=== PATIENT | male | born 1965 | race Caucasian/White ===

== ENCOUNTER 2018-12-03 15:24 | Emergency (ER) | payer BC, OTHER ==
--- OUTSIDE RECORDS SUMMARY | 2018-12-03 15:28 | XMS REPORT | Summary of Care ---
:1965 Demographics Address [address] [place] [address]- Email Address Preferred Language Turkmen Marital Status Bahai Affiliation None Race Other Ethnic Group Not or Author Organization [facility] Address [address], [place] [address]- Encounter HQ Encntr_alias(FIN) [id number] Date(s): 07/12/16 - 07/12/16 [facility] [address] [place] [address]- [phone] Discharge Disposition: Home or Self Care Attending Physician: Kailyn Davila PA-C Vital Signs No data available for this section Problem List Condition Effective Dates Status Health Status Informant Bone fracture(Confirmed) Resolved High cholesterol(Confirmed) Resolved Hypertension(Confirmed) Resolved HTN (hypertension)(Confirmed) Active Prostate cancer(Confirmed) Active PC (prostate cancer)(Confirmed) Active BPH (benign prostatic Resolved hyperplasia)(Confirmed) Elevated PSA(Confirmed) Resolved 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 Frequency: Daily. Smoking Status Former smoker; Type: Cigarettes; Exposure to Tobacco Smoke None ; Other Tobacco Frequency quit 3 years ago; Cigarette Smoking Last 365 Days No; Reg Smoking Cessation Counseling No Assessment and Plan No data available for this section
--- OUTSIDE RECORDS SUMMARY | 2018-12-03 15:28 | XMS REPORT | Continuity of Care Document ---
:1965 Author Organization Interface Problems Problem Status Onset Classification Date Comments Source Date Reported PROSTATE CANCER Active 06/01/[address] Bone fracture Resolved Problem 10/17/2016 [facility] OPISusana Sandoval High cholesterol Resolved Problem 10/17/2016 [facility] OPID Jaime Hypertension Resolved Problem 10/17/2016 [facility] OPID Jaime HTN (<span Active Problem 10/17/2016 [id number] [facility]spa [place] n>) [facility] Prostate cancer Active Problem 10/17/2016 [facility] OPID Jaime PC (<span Active Problem 10/17/2016 [facility][id number] [facility]spa [place] n>) [facility] BPH (<span Resolved Problem 10/17/2016 [facility] ID[facility][id number] [facility]spa [place] n[facility] Elevated PSA Resolved Problem 10/17/2016 [facility] OPID Jaime Type 2 diabetes Active Problem 10/17/2016 OPID mellitus with Jaime, diabetic chronic [place] kidney disease [facility] Urinary Active Problem 10/17/2016 OPID incontinence, Jaime mixed MALIGNANT Active [facility] NEOPLASM OF [facility] PROSTATE Center Medications Medication Details Route Status Patient Ordering Order Source Instructions Provider Date Lipitor 10 mg, 1 tab, No Longer [facility] Route: PO, Drug Active 2016 Medical form: TAB, Center Daily, Dosing Weight 92.813, kg, Start date: 07/07/16 9:00:00 JDE DEVELOPER, Duration: 30 day, Stop date: 08/05/16 9:00:00 CSTNotes: (Same As: Lipitor) Amlodipine 10 mg, 1 tab, No Longer [facility] Route: PO, Drug Active 2016 Medical form: TAB, Center Daily, Dosing Weight 92.813, kg, Start date: 07/07/16 9:00:00 JDE DEVELOPER, Duration: 30 day, Stop date: 08/05/16 9:00:00 CSTNotes: (Same as: Norvasc) ceFAZolin 1 gm, Route: Inactive [place] (SCIP) IVPB, Drug form: 2017 Medical PDR/INJ, Q8H, Center Dosing Weight 93.182, kg, Start date: 07/06/16 21:00:00 JDE DEVELOPER, Duration: 1 doses or times, Stop date: 07/06/16 21:00:00 CSTNotes: (Same As: Ancef, Kefzol) MEDICATION WASTE Product Size: 1000 mg Product Wasted: _0__ mg Metformin 500 mg, 1 tab, Inactive [place] hydrochloride Route: PO, Drug 2016 Medical 500 MG Oral form: TAB, Center Tablet BID-Meals, Dosing Weight 92.813, kg, Start date: 07/06/16 17:00:00 JDE DEVELOPER, Duration: 30 day, Stop date: 08/05/16 8:00:00 CSTNotes: (Same as: Glucophage) Take with meal Docusate Sodium 100 mg, 1 cap, Inactive [place] 100 MG Oral Route: PO, Drug 2016 Medical Capsule form: CAP, BID, Center [Colace] Dosing Weight 92.813, kg, Start date: 07/06/16 17:00:00 JDE DEVELOPER, Duration: 30 day, Stop date: 08/05/16 9:00:00 JDE DEVELOPER Lisinopril 20 mg, 1 tab, Inactive [place] Route: PO, Drug 2016 Medical form: TAB, Center Daily, Dosing Weight 92.813, kg, Start date: 07/06/16 13:30:00 JDE DEVELOPER, Duration: 30 day, Stop date: 08/05/16 9:00:00 CSTNotes: (Same as: Prinivil, Zestril) Doxepin 10 mg, 1 cap, Inactive [place] Route: PO, Drug 2016 Medical form: CAP, TID, Center Dosing Weight 92.813, kg, Start date: 07/06/16 13:00:00 JDE DEVELOPER, Duration: 30 day, Stop date: 08/05/16 9:00:00 CSTNotes: (Same as: SINEquan) Famotidine 20 mg, 1 tab, No Longer [place] Route: PO, Drug Active 2016 Medical form: TAB, Q12H, Center Dosing Weight 93.182, kg, Start date: 07/05/16 21:00:00 JDE DEVELOPER, Duration: 30 day, Stop date: 08/04/16 9:00:00 CSTNotes: (Same as: Pepcid) Ketorolac 15 mg, 1 mL, No Longer [place] Route: IVP, Drug Active 2016 Medical form: INJ, Q6H, Center Dosing Weight 93.182, kg, Start date: 07/05/16 18:00:00 JDE DEVELOPER, Duration: 6 doses or times, Stop date: 07/07/16 0:00:00 CSTNotes: (Same as:Toradol) IV bolus must be given >15 seconds. Give IM administration slowly and deeply into the muscle. Not for use > 4 days. Docusate Sodium 100 mg, 1 cap, No Longer [place] 100 MG Oral Route: PO, Drug Active 2016 Medical Capsule form: CAP, BID, Center Dosing Weight 93.182, kg, Start date: 07/05/16 17:00:00 JDE DEVELOPER, Duration: 30 day, Stop date: 08/04/16 9:00:00 CSTNotes: (Same as: Colace) (Do Not Crush) Bacitracin 0.5 1 appl, Route: No Longer [place] UNT/MG / TOP, QID, Drug Active 2016 Medical Polymyxin B 10 form: OINT, PRN [facility] UNT/MG Topical Other -See Ointment Comment, Start date: 07/05/16 16:02:00 JDE DEVELOPER, Duration: 30 day, Stop date: 08/04/16 16:01:00 JDE DEVELOPER, Substitute Allowed: Always, urethral meatus at huggins - lubircationNotes : (Same As: Polysporin) ceFAZolin 1 gm, Route: Inactive [place] (SCIP) IVPB, Drug form: 2016 Medical PDR/INJ, Q8H, Center Dosing Weight 93.182, kg, Start date: 07/05/16 16:00:00 JDE DEVELOPER, Duration: 1 doses or times, Stop date: 07/05/16 16:00:00 CSTNotes: (Same As: Ancef, Kefzol) MEDICATION WASTE Product Size: 1000 mg Product Wasted: _0__ mg zolpidem 5 mg, 1 tab, No Longer [place] Route: PO, Drug Active 2016 Medical form: TAB, Center Bedtime, Dosing Weight 93.182, kg, PRN Insomnia, Start date: 07/05/16 15:59:00 JDE DEVELOPER, Duration: 30 day, Stop date: 08/04/16 15:58:00 CSTNotes: (Same As: Alyssa) Ondansetron 4 mg, 2 mL, No Longer [place] Route: IVP, Drug Active 2016 Medical form: INJ, Q6H, Center Dosing Weight 93.182, kg, PRN Nausea & Vomiting, Start date: 07/05/16 15:59:00 JDE DEVELOPER, Duration: 30 day, Stop date: 08/04/16 15:58:00 CSTNotes: (Same as: Zofran) MEDICATION WASTE Product Size: 4 mg Product Wasted: ___ mg Dulcolax 5 mg, 1 tab, No Longer [place] Laxative Route: PO, Drug Active 2016 Medical form: ECTAB, Center Q24H, Dosing Weight 93.182, kg, PRN Constipation, Start date: 07/05/16 15:59:00 JDE DEVELOPER, Duration: 30 day, Stop date: 08/04/16 15:58:00 CSTNotes: (Same As: Dulcolax, Correctol) (Do Not Crush) "Do Not Crush" Morphine 2 mg, 1 mL, No Longer [place] Route: IVP, Drug Active 2016 Medical form: INJ, Q3H, Center Dosing Weight 93.182, kg, PRN Pain Score 1-3, Start date: 07/05/16 15:59:00 JDE DEVELOPER, Duration: 30 day, Stop date: 08/04/16 15:58:00 CSTNotes: (Same as:MORPhine Sulfate) Acetaminophen 1 tab, Route: No Longer [place] 325 MG / PO, Drug Form: Active 2017 Medical Hydrocodone TAB, Dosing Center Bitartrate 5 MG Weight 93.182, Oral Tablet kg, Q4H, PRN Pain Score 4-6, Start date: 07/05/16 15:59:00 JDE DEVELOPER, Duration: 30 day, Stop date: 08/04/16 15:58:00 CSTNotes: (Same as: Lamar 325/5) Do not exceed 4gm/day of acetaminophen. Calcium 1,000 mL, Rate: No Longer [place] Chloride 0.0014 125 ml/hr, Active 2016 Medical MEQ/ML / Infuse over: 8 Center Potassium hr, Route: IV, Chloride 0.004 Dosing Weight MEQ/ML / Sodium 93.182 kg, Total Chloride 0.103 Volume: 1,000, MEQ/ML / Sodium Start date: Lactate 0.028 07/05/16 MEQ/ML 15:59:00 JDE DEVELOPER, Injectable Duration: 30 Solution day, Stop date: 08/04/16 15:58:00 JDE DEVELOPER Ondansetron 4 mg, 2 mL, Inactive [place] Route: IVP, Drug 2016 Medical form: INJ, ONCE, Center Dosing Weight 93.182, kg, PRN Nausea & Vomiting, Start date: 07/05/16 12:07:00 CSTNotes: (Same as: Zofran) MEDICATION WASTE Product Size: 4 mg Product Wasted: ___ mg Hydralazine 10 mg, 0.5 mL, Inactive [place] Route: IVP, Drug 2016 Medical form: INJ, Center Q20Min, Dosing Weight 93.182, kg, PRN Elevated BP, Start date: 07/05/16 12:07:00 JDE DEVELOPER, Duration: 2 doses or times, Stop date: 07/06/16 0:00:00 CSTNotes: (Same as: Apresoline) Push over 5 minutes Labetalol 10 mg, 2 mL, Inactive [place] Route: IVP, Drug 2016 Medical form: INJ, Center Q5Min, Dosing Weight 93.182, kg, PRN Elevated BP, Start date: 07/05/16 12:07:00 JDE DEVELOPER, Duration: 5 doses or times, Stop date: 07/06/16 0:00:00 JDE DEVELOPER Hydromorphone 0.5 mg, 0.25 mL, Inactive [place] Route: IVP, Drug 2016 Medical form: INJ, Center Q5Min, Dosing Weight 93.182, kg, PRN Pain Score 7-10, Start date: 07/05/16 12:07:00 JDE DEVELOPER, Duration: 4 doses or times, Stop date: 07/06/16 0:00:00 CSTNotes: Same as Dilaudid Morphine 2 mg, 0.5 mL, Inactive [place] Route: IVP, Drug 2016 Medical form: SOLN, Center Q5Min, Dosing Weight 93.182, kg, PRN Pain Score 4-6, Start date: 07/05/16 12:07:00 JDE DEVELOPER, Duration: 5 doses or times, Stop date: 07/06/16 0:00:00 CSTNotes: (Same as:MORPhine Sulfate) Naloxone 0.4 mg, 1 mL, Inactive [place] Route: IVP, Drug 2016 Medical form: INJ, Center Q2MIN, Dosing Weight 93.182, kg, PRN Narcotic Reversal, Start date: 07/05/16 12:07:00 JDE DEVELOPER, Duration: 8 doses or times, Stop date: 07/06/16 0:00:00 CSTNotes: Same as Narcan Flumazenil 0.2 mg, 2 mL, Inactive [place] Route: IVP, Drug 2016 Medical form: INJ, PRN, Center Dosing Weight 93.182, kg, PRN Benzodiazepine Reversal, Initial dose, Start date: 07/05/16 12:07:00 JDE DEVELOPER, Duration: 30 day, Stop date: 08/04/16 12:06:00 CSTNotes: (Same as: Romazicon) ceFAZolin 2 gm, 100 mL, No Longer [place] Route: IVPB, Active 2016 Medical Drug form: INJ, Center PRE OP, Start date: 07/04/16 23:00:00 JDE DEVELOPER, Duration: 1 day, Stop date: 07/05/16 22:59:00 CSTNotes: Same as: Ancef lisinopril 20 20 mg=1 tab, PO, Active [place] mg oral tablet Daily, 0 2015 Medical Refill(s) Center amLODIPine 10 10 mg=1 tab, PO, Active [place] mg oral tablet Daily, 0 2015 Medical Refill(s) Center Metformin 500 mg=1 tab, Active [place] hydrochloride PO, BID, 0 2015 Medical 500 MG Oral Refill(s) Center Tablet doxepin 10 mg 10 mg=1 cap, PO, Active [place] oral capsule TID, 0 Refill(s) 2015 [facility] atorvastatin 10 10 mg=1 tab, PO, Active [place] MG Oral Tablet Daily, 0 2015 [facility] [Lipitor] Refill(s) [facility] Allergies, Adverse Reactions, Alerts Substance Category Reaction Severity Reaction Status Date Comments Source type Reported Immunizations Immunization Date Given Site Status Last Updated Comments Source Results Order Name Results Value Reference Date Interpretation Comments Source Range Bone / Bone / joint EXAM: NM Bone Joint Imaging Whole Body and SPECT OPID joint SPECT SPECT ND This report was dictated by a Computer Network Engineer/Fellow. I have personally reviewed the images as well as the Resident's interpretation and agree with the findings. DATE: 10/14/2016 3:51 PM CDT Read by: Lisa Landaverde MD Resident: Lisa Landaverde MD Dictated Date/time: 10/14/16 16:26 Electronically Signed by: Bryanna Murray MD 10/15/16 10:51 FINAL REPORT INDICATION: Prostate cancer, restaging. COMPARISON: None TECHNIQUE: Approximately 2 hours delayed whole body images were obtained after intravenous administration of 26.24 mCi of Tc-99m MDP. Additional static images of the thorax and pelvis were obtained. SPECT imaging of the pelvis was also obtained to evaluate the sacrum. FINDINGS: Small focal of uptake projecting over the left mid sacrum was evaluated using SPECT and is localized to the superficial soft tissues of the buttocks, consistent with urinary contamination. Mild uptake a t the right glenohumeral joint is consistent with degenerative change. No suspicious focal uptake is seen in the rest of the body to suggest metastases. The rest of tracer distribution throughout the body is physiologic. IMPRESSION: No evidence of bony metastases. Bone scan Bone scan NM EXAM: NM Bone Joint Imaging Whole Body and SPECT OPID This report was dictated by a Computer Network Engineer/Fellow. I have personally reviewed the images as well as the Resident's interpretation and agree with the findings. DATE: 10/14/2016 3:51 PM CDT Read by: Lisa Landaverde MD Resident: Lisa Landaverde MD Dictated Date/time: 10/14/16 16:26 Electronically Signed by: Bryanna Murray MD 10/15/16 10:51 FINAL REPORT INDICATION: Prostate cancer, restaging. COMPARISON: None TECHNIQUE: Approximately 2 hours delayed whole body images were obtained after intravenous administration of 26.24 mCi of Tc-99m MDP. Additional static images of the thorax and pelvis were obtained. SPECT imaging of the pelvis was also obtained to evaluate the sacrum. FINDINGS: Small focal of uptake projecting over the left mid sacrum was evaluated using SPECT and is localized to the superficial soft tissues of the buttocks, consistent with urinary contamination. Mild uptake a t the right glenohumeral joint is consistent with degenerative change. No suspicious focal uptake is seen in the rest of the body to suggest metastases. The rest of tracer distribution throughout the body is physiologic. IMPRESSION: No evidence of bony metastases. Abdomen/Pel Abdomen/Pelvi EXAM: CT ABDOMEN AND PELVIS WITHOUT AND WITH CONTRAST 10/14 - OPID vis w/wo IV s w/wo IV /2016 - [place] contrast CT contrast CT DATE: 10/14/2016 11:46 AM CDT Read by: Moshe Stiles MD Dictated Date/time: 10/14/16 14:03 Electronically Signed by: Moshe Stiles MD 10/14/16 15:41 FINAL REPORT INDICATION: C61 Malignant neoplasm of prostate - Evaluate for possible metastasis ADDITIONAL INFORMATION: None. COMPARISON: None. TECHNIQUE: Volumetric CT acquisition of the abdomen and pelvis before and after the intravenous administration contrast. Axial, coronal and sagittal reconstructions. Postcontrast phases: Venous. IV contrast: 100 mL of Omnipaque 350 Oral contrast: None. DLP: 1426 mGy-cm FINDINGS: Lines and tubes: None. Lower thorax: Clear. Liver: Normal. Biliary tree: No intra- or extrahepatic biliary ductal dilation. Gallbladder: Normal. No CT evidence of gallstones. Pancreas: Normal. Spleen: Normal. Adrenals: Normal. Kidneys and ureters: Normal. Bladder: Normal. Reproductive organs: No CT abnormality. Gastrointestinal tract: Colonic diverticulosis without any CT evidence of acute otitis. Appendix: Normal. Peritoneum and retroperitoneum: No ascites or free air. No other fluid collection. Lymph nodes: A 9 mm lymph node in the left internal iliac chain on series 3 , image 68. Vasculature: Atherosclerotic calcifications. Bones: Normal. Soft tissues: Normal. IMPRESSION: 1. A 9 mm left internal iliac chain lymph node. RECOMMENDATIONS: None. Cystogram Cystogram DX EXAM: FLUOROSCOPIC CYSTOGRAM 07/19 OPID Jaime DATE: 07/19/2016 10:00 AM JDE DEVELOPER Read by: Dank Chavez MD Dictated Date/time: 07/19/16 11:10 Electronically Signed by: Dank Chavez 07/19/16 11:19 FINAL REPORT INDICATION: Tube placement/removal/reposition ADDITIONAL INFORMATION: Prostate CA status post prostatectomy COMPARISON: 07/12/2016 TECHNIQUE: Approximately 120 cc of Cysto-Conray II was infused through the patient's existing Huggins catheter. Early, delayed filling, and post void radiographs were obtained in AP and oblique projections. FLUOROSCOPY TIME: 0.23 seconds DISCUSSION: Preliminary radiograph: Normal. Urinary bladder: Bladder contours are slightly irregular. Faint minimal area of extravasation is noted at the vesicourethral anastomosis as noted on prior exam, however significantly decreased. This is best seen on the oblique images No significant post void residual. IMPRESSION: 1. Very minimal faint extravasation noted at the vesicourethral anastomosis significantly decreased from prior exam. Above findings discussed with SHANE Mendoza from Dr. Corley's office at the time of dictation. Cystogram Cystogram DX EXAM: FLUOROSCOPIC CYSTOGRAM 07/12 OPID Jaime DATE: 07/12/2016 11:02 AM JDE DEVELOPER Read by: Ban Jones MD Dictated Date/time: 07/12/16 11:28 Electronically Signed by: Ban Jones MD 07/12/16 11:30 FINAL REPORT INDICATION: Tube placement/removal/reposition/C61 Malignant neoplasm of prostate ADDITIONAL INFORMATION: None. COMPARISON: None. TECHNIQUE: Approximately 120 cc of Cysto-Conray II was infused through the patient's existing Huggins catheter. Early, delayed filling, and post void radiographs were obtained in AP and oblique projections. FLUOROSCOPY TIME: 49 seconds DOSE: 49.04 mGy DISCUSSION: Preliminary radiograph: A Huggins catheter is present within the urinary bladder. Urinary bladder: Bladder contours are smooth. A small amount of extravasated contrast is seen from the vesicourethral anastomosis during late filling, right greater than left. No significant post void residual. IMPRESSION: 1. Contrast extravasation at the vesicourethral anastomosis. CHEM PANEL eGFR 62 07/05 Result Comment: The eGFR is calculated using the CKD-EPI formula. In most young, healthy individuals the eGFR will be >90 mL/ min/1.73m2. The eGFR declines with age. An eGFR of 60-89 may be normal in [facility] mL/min/1.7 some populations, particularly the elderly, for whom the CKD-EPI formula has not been extensively validated. Use of the eGFR is not recommended in the following populations: [address] Individuals with unstable creatinine concentrations, including patients and those with serious co-morbid conditions. Patients with extremes in muscle mass or diet. The data above are obtained from the National Kidney Disease Education Program (NKDEP) which additionally recommends that when the eGFR is used in patients with extremes of body mass index for purposes of drug dosing, the eGFR should be multiplied by the estimated BMI. CHEM PANEL Alk Phos 75 unit/L 39 - 136 07/[address] CHEM PANEL AST 14 unit/L 0 - 37 07/[address] CHEM PANEL Bili Total 0.6 mg/dL 0.2 - 1.3 07/[address] CHEM PANEL ALT 22 unit/L 0 - 65 07/[address] CHEM PANEL Chloride Lvl 102 meq/L 95 - 109 07/[address] CHEM PANEL CO2 25 meq/L 24 - 32 07/[address] CHEM PANEL Creatinine 1.31 mg/dL 0.50 - 07/05 [facility] Lvl [address].40 [facility] CHEM PANEL Calcium Lvl 8.8 mg/dL 8.5 - 10.5 07/[address] CHEM PANEL Potassium Lvl 4.6 meq/L 3.5 - 5.1 07/[address] CHEM PANEL Sodium Lvl 136 meq/L 135 - 145 07/[address] CHEM PANEL Albumin Lvl 3.8 g/dL 3.5 - 5.0 07/[address] CHEM PANEL Total Protein 7.1 g/dL 6.4 - 8.4 07/[address] CHEM PANEL BUN 14 mg/dL 7 - 22 07/[address] CHEM PANEL Glucose Lvl 161 mg/dL 70 - 99 07/05 [facility] CHEM PANEL A/G Ratio 1.2 0.7 - 1.6 07/05 [facility] CHEM PANEL B/C Ratio 11 6 - 25 07/05 [facility] CHEM PANEL AGAP 13.6 meq/L 10.0 - 07/[address] [facility] CHEM PANEL Globulin 3.3 g/dL 2.7 - 4.2 07/05 [facility] HEMATOLOGY RBC 4.21 M/CMM 4.70 - 07/[address] [facility] HEMATOLOGY Hgb 13.5 g/dL 14.0 - 07/[address] [facility] HEMATOLOGY WBC 13.3 K/CMM 3.7 - 10.4 07/05 [facility] HEMATOLOGY Hct 40.2 % 42.0 - 07/[address] [facility] HEMATOLOGY MCV 95.3 fL 80.0 - 07/[address] [facility] HEMATOLOGY MPV 7.7 fL 7.4 - 10.4 07/05 [facility] HEMATOLOGY RDW 12.6 % 11.5 - 07/[address] [facility] HEMATOLOGY Platelet 250 K/CMM 133 - 450 07/05 [facility] HEMATOLOGY MCH 31.9 pg 27.0 - 07/[address] [facility] HEMATOLOGY MCHC 33.5 g/dL 32.0 - 07/[address] [facility] HEMATOLOGY Lymphocytes 3.3 % 20.0 - 07/[address] [facility] HEMATOLOGY Segs 95.7 % 45.0 - 07/[address] [place] [address] [facility] HEMATOLOGY Lymphocytes # 0.4 K/CMM 1.0 - 5.5 07/05 [facility] HEMATOLOGY Segs-Bands # 12.7 K/CMM 1.5 - 8.1 07/05 [facility] HEMATOLOGY Basophils 0.1 % 0.0 - 1.0 07/[address] [place] [address] HEMATOLOGY Monocytes 0.9 % 2.0 - 12.0 07/05 [facility] HEMATOLOGY Monocytes # 0.1 K/CMM 0.0 - 0.8 07/05 [facility] PARATHYROID Ca Norm WB 1.10 1.05 - 07/05 [facility] PROFILE mMol/L 1. [facility] PARATHYROID Ca Ion WB 1.14 1. - 07/05 [facility] PROFILE mMol/L 1. [facility] BLOOD BANK Antibody Scrn Negative 07/05 [facility] (07/05/16 11:07 AM) [facility] BLOOD BANK ABO/Rh O POS 07/[address] [facility] CHEM PANEL eGFR 68 07/02 Result Comment: The eGFR is calculated using the CKD-EPI formula. In most young, healthy individuals the eGFR will be >90 mL/ min/1.73m2. The eGFR declines with age. An eGFR of 60-89 may be normal in [facility] mL/min/1. some populations, particularly the elderly, for whom the CKD-EPI formula has not been extensively validated. Use of the eGFR is not recommended in the following populations: [address] Individuals with unstable creatinine concentrations, including patients and those with serious co-morbid conditions. Patients with extremes in muscle mass or diet. The data above are obtained from the National Kidney Disease Education Program (NKDEP) which additionally recommends that when the eGFR is used in patients with extremes of body mass index for purposes of drug dosing, the eGFR should be multiplied by the estimated BMI. CHEM PANEL Potassium Lvl 4.6 meq/L 3.5 - 5.1 07/02 [facility] CHEM PANEL Sodium Lvl 141 meq/L 135 - 145 07/02 [facility] CHEM PANEL Creatinine 1.21 mg/dL 0.50 - 07/02 [facility] Lvl 1.40 [facility] CHEM PANEL BUN 18 mg/dL 7 - 22 07/02 [facility] CHEM PANEL Glucose Lvl 104 mg/dL 70 - 99 07/02 [facility] CHEM PANEL Calcium Lvl 10.1 mg/dL 8.5 - 10.5 07/02 [facility] CHEM PANEL CO2 28 meq/L 24 - 32 07/02 [facility] CHEM PANEL Chloride Lvl 103 meq/L 95 - 109 07/02 [facility] CHEM PANEL AGAP 14.6 meq/L 10.0 - 07/[address] [facility] [address] [facility] HEMATOLOGY TEG Data See Note 07/02 [facility] (07/02/16 4:30 PM) [facility] HEMATOLOGY Coag Index 2.6 -3.0-3.0 - 07/[address] [facility] HEMATOLOGY Max Amp 65.9 mm 50.0 - 07/[address] [facility] HEMATOLOGY G-value 9.7 K d/sc 4.5 - 11.0 07/[address] [facility] HEMATOLOGY Angle 70.3 53.0 - 07/02 [facility] degrees 72.0 [facility] HEMATOLOGY Ly30 0.0 % 0.0 - 7.5 07/[address] HEMATOLOGY K-time 1.3 min 1.0 - 3.0 07/[address] [facility] HEMATOLOGY R-time 3.9 min 5.0 - 10.0 07/[address] HEMATOLOGY Basophils # 0.1 K/CMM 0.0 - 0.2 07/[address] HEMATOLOGY Monocytes # 0.5 K/CMM 0.0 - 0.8 07/[address] HEMATOLOGY Lymphocytes # 1.5 K/CMM 1.0 - 5.5 07/[address] HEMATOLOGY Segs-Bands # 6.0 K/CMM 1.5 - 8.1 07/[address] HEMATOLOGY Basophils 0.7 % 0.0 - 1.0 07/[address] HEMATOLOGY Eosinophils 0.3 % 0.0 - 4.0 07/[address] [place] [address] HEMATOLOGY Lymphocytes 18.8 % 20.0 - 07/[address] [facility] HEMATOLOGY Monocytes 6.0 % 2.0 - 12.0 07/[address] [place] [address] HEMATOLOGY Segs 74.2 % 45.0 - 07/[address] [facility] HEMATOLOGY INR 1.00 0.85 - 07/[address] [facility] [address] [facility] HEMATOLOGY PTT 30.4 s 22.9 - 07/[address] [facility] [address] [facility] HEMATOLOGY PT 13.4 s 12.0 - 07/[address] [facility] HEMATOLOGY D-Dimer 0.27 ug/mL 07/[address] [facility] [address] [facility] HEMATOLOGY RBC 4.42 M/CMM 4.70 - 07/[address] [facility] HEMATOLOGY MCV 96.0 fL 80.0 - 07/[address] [facility] [address] [facility] HEMATOLOGY Hgb 14.6 g/dL 14.0 - 07/[address] [facility] [address] [facility] HEMATOLOGY Hct 42.4 % 42.0 - 07/[address] [facility] [address] [facility] HEMATOLOGY WBC 8.1 K/CMM 3.7 - 10.4 07/02 [facility] HEMATOLOGY MCH 33.0 pg 27.0 - 07/[address] [facility] [address] [facility] HEMATOLOGY MCHC 34.4 g/dL 32.0 - 07/[address] [facility] [address] [facility] HEMATOLOGY RDW 12.5 % 11.5 - 07/[address] [facility] [address] [facility] HEMATOLOGY Platelet 254 K/CMM 133 - 450 07/02 [facility] HEMATOLOGY MPV 7.7 fL 7.4 - 10.4 07/[address] [facility] SPECIAL Hgb A1C 6.0 % <=5.6 % 07/[address] [facility] [address] [facility] URINE AND UA 0.2 EU/dL 0.1 - 1.0 07/02 [facility] [address] [facility] URINE AND UA Sq Epi RARE 07/[address] [facility] URINE AND UA Blood Trace Negative 07/02 [facility] *ABN* [facility] (07/02/16 4:30 PM) URINE AND UA Mucus Few /LPF None Seen 07/02 [facility] STOOL /LPF /2016 [facility] URINE AND UA RBC 15 /HPF 0 - 2 07/[address] [facility] [address] [facility] URINE AND UA WBC 1 /HPF 0 - 5 07/[address] [facility] URINE AND UA Leuk Est Negative Negative 07/02 [facility] STOOL [facility] (07/02/16 4:30 PM) Center URINE AND UA Nitrite Negative Negative 07/02 [facility] (07/02/16 4:30 PM) [place] URINE AND UA Bili Negative Negative 07/02 [facility] *NA* [facility] (07/02/16 4:30 PM) URINE AND UA Glucose Negative Negative 07/02 [facility] [place] STOOL mg/dL mg/dL [facility] URINE AND UA pH 6.0 5.0 - 8.0 07/[address] [facility] [address] [facility] URINE AND UA Ketones Negative Negative 07/02 [facility] STOOL mg/dL mg/dL [facility] URINE AND UA Protein Negative Negative 07/02 [facility] STOOL mg/dL mg/dL [facility] URINE AND UA Spec Grav 1.018 <=1.030 07/[address] [facility] [address] [facility] URINE AND UA Turbidity Clear Clear 07/02 [facility] (07/02/16 4:30 PM) [facility] URINE AND UA Color Yellow Yellow 07/02 [facility] *NA* [facility] (07/02/16 4:30 PM) CHEM PANEL eGFR 97 06/25 Result Comment: The eGFR is calculated using the CKD-EPI formula. In most young, healthy individuals the eGFR will be >90 mL/ min/1.73m2. The eGFR declines with age. An eGFR of 60-89 may be normal in [facility] mL/min/1.7 some populations, particularly the elderly, for whom the CKD-EPI formula has not been extensively validated. Use of the eGFR is not recommended in the following populations: [address] Individuals with unstable creatinine concentrations, including patients and those with serious co-morbid conditions. Patients with extremes in muscle mass or diet. The data above are obtained from the National Kidney Disease Education Program (NKDEP) which additionally recommends that when the eGFR is used in patients with extremes of body mass index for purposes of drug dosing, the eGFR should be multiplied by the estimated BMI. CHEM PANEL POC 0.9 mg/dL 0.5 - 1.4 06/[address] [facility] [address] [facility] Pelvis w/wo Pelvis w/wo EXAM: MR PELVIS WITH AND WITHOUT CONTRAST 06/25 - [facility] contrast contrast MRI - Medical MRI This report was dictated by a Computer Network Engineer/Fellow. I have personally reviewed the images as Center well as the Resident's interpretation and agree with the findings. DATE: 06/25/2016 2:00 PM JDE DEVELOPER Read by: Ban Jones Resident: Ban Jones (Hardik Dictated Date/time: 06/28/16 11:51 Electronically Signed by: Curtis Go MD 06/28/16 16:53 FINAL REPORT INDICATION: Prostate Cancer ADDITIONAL INFORMATION: Prostate-specific antigen 20.3 on 03/2016. Prostate biopsy on 04/16/2016 demonstrates adenocarcinoma in all cores ranging from [place] 7 to [place] 9. On casodex. COMPARISON: None. TECHNIQUE: TECHNIQUE: Multiplanar, multisequence acquisition of the prostate both prior to and following intravenous contrast, per the dynamic prostate protocol. Axial, sagittal and coronal reconstructi ons. The study was transferred to work station for post processing. IV contrast: 9 mL Gadavist FINDINGS: Image quality: Excellent. Prostate: Size 3.1 x 3.5 x 4.6 cm, 25.9 mL. There is diffuse, infiltrative low T2 signal throughout the prostate gland involving the transition and peripheral zone bilaterally. There is relative sparing of the left peripheral zone at the apex. Co rresponding heterogeneous, moderate diffusion restriction and low ADC signal is seen throughout the prostate gland, with intermixed areas of significant low ADC signal. Heterogeneous arterial enhancemen t with delayed phase plateau is seen throughout the prostate. Seminal vesicles: Low T2 signal extends into the proximal seminal vesicles bilaterally with postcontrast enhancement, consistent with spread of tumor. Extracapsular extension: There is irregularity of the posterior prostate capsule at midline in the mid gland (series 601 image 17), concerning for extracapsular extension. No definite neurovascular bundle invasion. Bladder: The urinary bladder wall is trabeculated, consistent with chronic bladder outlet obstruction. Bladder invasion: No definite urinary bladder invasion. Lymph nodes: A 0.8 cm left internal iliac lymph node is seen on series 1503 image 114. A 0.8 cm left common iliac lymph node is seen on series 1503 image 137. These nodes demonstrate a rounded, irregula r contour and are highly suspicious for metastatic disease. A 0.5 cm right common iliac lymph node is present (series 3 image 153). A few scattered tiny perirectal lymph nodes are seen (2-3 mm) on series 1503 image 105, 94, and 120. Bones: No suspicious osseous lesions. A small fat-containing right inguinal hernia is present. Sigmoid diverticulosis is seen without diverticulitis. IMPRESSION: 1. Diffuse, infiltrative low signal throughout the prostate gland involving the peripheral and transition zones with relative sparing of the left peripheral zone apex, consistent with infiltrative pros plascencia cancer (PI-RADS 5). Heterogeneous diffusion restriction and post- contrast enhancement may reflect partial treatment response. 2. Bilateral seminal vesicle invasion. 3. Irregularity of the posterior prostate capsule at midline in the mid gland likely represents extracapsular extension. 4. Abnormal left internal iliac and left common iliac lymph nodes, highly suspicious for metastatic disease. Vital Signs Vital Sign Value Date Comments Source Systolic (mm Hg) 151 07/06/2016 [facility] Diastolic (mm Hg) 94 07/06/2016 [facility] Respitory Rate 18 07/06/2016 [facility] Heart Rate 92 07/06/2016 [facility] Temperature Oral (F) 98.7 F 07/06/2016 [facility] Respitory Rate 18 07/06/2016 [facility] Systolic (mm Hg) 128 07/06/2016 [facility] Diastolic (mm Hg) 85 07/06/2016 [facility] Temperature Oral (F) 98.1 F 07/06/2016 [facility] Heart Rate 83 07/06/2016 [facility] Heart Rate 99 07/06/2016 [facility] Temperature Oral (F) 99.3 F 07/06/2016 [facility] Systolic (mm Hg) 141 07/06/2016 [facility] Diastolic (mm Hg) 94 07/06/2016 [facility] Respitory Rate 18 07/06/2016 [facility] Weight 92.813 07/05/2016 [facility] Height 185.42 cm 07/05/2016 [facility] BMI Calculated 27 07/05/2016 [facility] BMI Calculated 27.1 07/05/2016 [facility] Height 185.42 cm 07/05/2016 [facility] Weight 93.182 07/05/2016 [facility] Weight 93.182 07/02/2016 [facility] BMI Calculated 27.1 07/02/2016 [facility] Height 185.42 cm 07/02/2016 [facility] Encounters Location Location Encounter Encounter Reason Attending ADM DC Status Source Details Type Number For Provider Date Date Visit Outpatient [id number] DOMI 06/01 [facility] [id number] Orville Rousseau 06/25 06/26 [facility]2016 [facility] Outpatient [id number] DOMI 07/01 [facility] [place] [facility] [id number] [place] ROUSSEAU 07/02 [facility] [id number] Domi 07/05 07/06 [facility] Outpatient [id number] [place]LE ROUSSEAU 07/12 [facility] [id number] Orville Rousseau 07/12 07/13 [facility] [place] [facility] [id number] [place] ROUSSEAU 07/19 [facility] [id number] Orville Rousseau 07/19 07/20 [facility] [place] [facility] [id number] DOMI 08/26 [facility] Outpt Diag [id number] Domi 10/14 10/15 [facility] [place] [facility] [place] [facility] [id number] DOMI 10/21 [facility] [id number] ORV[place]LE ROUSSEAU 04/29 [place] [facility] Procedure Code Date Perfomer [place] [address] [facility] cystography or voiding 7 [place] urethrocyst[facility] Prostatectomy [id number] [facility] 7 [facility] Prostatectomy [id number] [address]
--- OUTSIDE RECORDS SUMMARY | 2018-12-03 15:28 | XMS REPORT | Summary of Care ---
:1965 Demographics Address [address] [place] [address]- Email Address Preferred Language Spanish Marital Status Baptist Affiliation None Race White/ Ethnic Group Not or Author Organization [facility] Address [address] [place], [place] [address]- Encounter [facility]([place]) [id number] Date(s): 06/25/16 - 06/25/[address] [address]- [place] Discharge Disposition: Home or Self Care Attending Physician: Kailyn Davila PA-C Referring Physician: Kailyn Davila PA-C Vital Signs No data available for this section Problem List Condition Effective Dates Status Health Status Informant Bone fracture(Confirmed) Resolved High cholesterol(Confirmed) Resolved Hypertension(Confirmed) Resolved Prostate cancer(Confirmed) Active Elevated PSA(Confirmed) Resolved Allergies, Adverse Reactions, Alerts No data available for this section Medications No data available for this section Results CHEM PANEL Most recent to oldest [Reference Range]: 1 eGFR 97 mL/min/1.73m2 1 *NA* (06/25/16 3:05 PM) POC Creatinine [0.5-1.4 mg/dL] 0.9 mg/dL (06/25/16 3:05 PM) 1Result Comment: The eGFR is calculated using the CKD-EPI formula. In most young , healthy individualsthe eGFR will be >90 mL/min/1.73m2. The eGFR declines with age. An eGFR of 60-89 may be normal in some populations, particularly the elderly, for whom the CKD-EPI formula has not been extensively validated. Use of the eGFR is not recommended in the following populations: Individuals with unstable creatinine concentrations, including patients and those with serious co-morbid conditions. Patients with extremes in muscle mass or diet. The data above are obtained from the National Kidney Disease Education Program ( NKDEP) which additionally recommends that when the eGFR is used in patients with extremes of body mass index for purposesof drug dosing, the eGFR should be multiplied by the estimated BMI. Immunizations No data available for this section Procedures No data available for this section Social History Social History Type Response Smoking Status Never smoker; Exposure to Tobacco Smoke None; Cigarette Smoking Last 365 Days No; Reg Smoking Cessation Counseling No Assessment and Plan No data available for this section
--- OUTSIDE RECORDS SUMMARY | 2018-12-03 15:28 | XMS REPORT | Summary of Care ---
:1965 Demographics Address [address] [place] [address]- Email Address Preferred Language Burundian Marital Status Evangelical Affiliation None Race White/ Ethnic Group Not or Author [facility] Address [address] [place] [id number]- Encounter HQ Encntr_alilidia(FIN) [id number] Date(s): 07/05/16 - 07/06/[address] Professional Services provided by [facility] [place] [address]- Discharge Disposition: Home or Self Care Attending Physician: Rashid Lam MD Admitting Physician: Rashid Lam MD Referring Physician: Rashid Lam MD Vital Signs Most recent to oldest 1 2 3 [Reference Range]: Height 185.42 cm 185.42 cm 185.42 cm (07/05/16 5:25 PM) (07/05/16 10:53 AM) (07/02/16 2:57 PM) Temperature Oral [96.4-99.1 98.7 DegF 98.1 DegF 99.3 DegF DegF] (07/06/16 7:24 AM) (07/06/16 3:19 AM) *HI* (07/05/16 11:25 PM) Blood Pressure [90-140/60-90 151/94 mmHg 128/85 mmHg 141/94 mmHg mmHg] *HI* (07/06/16 3:19 AM) *HI* (07/06/16 7:24 AM) (07/05/16 11:25 PM) Respiratory Rate [14-20 18 BRMIN 18 BRMIN 18 BRMIN BRMIN] (07/06/16 7:24 AM) (07/06/16 3:19 AM) (07/05/16 11:25 PM) Peripheral Pulse Rate [60-100 92 bpm 83 bpm 99 bpm bpm] (07/06/16 7:24 AM) (07/06/16 3:19 AM) (07/05/16 11:25 PM) Weight 92.813 kg 93.182 kg 93.182 kg (07/05/16 5:25 PM) (07/05/16 10:53 AM) (07/02/16 2:57 PM) Body Mass Index 27 m2 27.1 m2 27.1 m2 (07/05/16 5:25 PM) (07/05/16 10:53 AM) (07/02/16 2:57 PM) Problem List Condition Effective Dates Status Health Status Informant Bone fracture(Confirmed) Resolved High cholesterol(Confirmed) Resolved Hypertension(Confirmed) Resolved HTN (hypertension)(Confirmed) Active Prostate cancer(Confirmed) Active PC (prostate cancer)(Confirmed) Active BPH (benign prostatic Resolved hyperplasia)(Confirmed) Elevated PSA(Confirmed) Resolved 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 Start Date: 07/05/16 Stop Date: 07/06/16 Status: DiscontinuedamLODIPine 10 mg, 1 tab, Route: PO, Drug form: TAB, Daily, Dosing Weight 92.813, kg, Start date: 07/07/16 9:00:00 GROUP RESERVATIONS COORDINATOR, Duration: 30 day, Stop date: 08/05/16 9:00:00 GROUP RESERVATIONS COORDINATOR Notes: (Same as: Norvasc) Start Date: 07/07/16 Stop Date: 07/06/16 Status: CanceledamLODIPine 10 mg oral tablet 10 mg=1 tab, PO, Daily, 0 Refill(s) Start Date: 06/03/16 Status: OrderedANES flumazenil 0.2 mg, 2 mL, Route: IVP, Drug form: INJ, PRN, Dosing Weight 93.182, kg, PRN Benzodiazepine Reversal, Initial dose, Start date: 07/05/16 12:07:00 GROUP RESERVATIONS COORDINATOR, Duration: 30 day, Stop date: 08/04/16 12:06:00 GROUP RESERVATIONS COORDINATOR Notes: (Same as: Romazicon) Start Date: 07/05/16 Stop Date: 07/05/16 Status: DiscontinuedANES hydrALAZINE 10 mg, 0.5 mL, Route: IVP, Drug form: INJ, Q20Min, Dosing Weight 93.182, kg, PRN Elevated BP, Start date: 07/05/16 12:07:00 GROUP RESERVATIONS COORDINATOR, Duration: 2 doses or times, Stop date: 07/06/16 0:00:00 GROUP RESERVATIONS COORDINATOR Notes: (Same as: Apresoline)Push over 5 minutes Start Date: 07/05/16 Stop Date: 07/05/16 Status: DiscontinuedANES HYDROmorphone 0.5 mg, 0.25 mL, Route: IVP, Drug form: INJ, Q5Min, Dosing Weight 93.182, kg, PRN Pain Score 7-10, Start date: 07/05/16 12:07:00 GROUP RESERVATIONS COORDINATOR, Duration: 4 doses or times, Stop date: 07/06/16 0:00:00 GROUP RESERVATIONS COORDINATOR Notes: Same as Dilaudid Start Date: 07/05/16 Stop Date: 07/05/16 Status: DiscontinuedANES labetalol 10 mg, 2 mL, Route: IVP, Drug form: INJ, Q5Min, Dosing Weight 93.182, kg, PRN Elevated BP, Start date: 07/05/16 12:07:00 GROUP RESERVATIONS COORDINATOR, Duration: 5 doses or times, Stop date: 07/06/16 0:00:00 GROUP RESERVATIONS COORDINATOR Start Date: 07/05/16 Stop Date: 07/05/16 Status: DiscontinuedANES morphine Sulfate 2 mg, 0.5 mL, Route: IVP, Drug form: SOLN, Q5Min, Dosing Weight 93.182, kg, PRN Pain Score 4-6, Start date: 07/05/16 12:07:00 GROUP RESERVATIONS COORDINATOR, Duration: 5 doses or times, Stop date: 07/06/16 0:00:00 GROUP RESERVATIONS COORDINATOR Notes: (Same as:MORPhine Sulfate) Start Date: 07/05/16 Stop Date: 07/05/16 Status: DiscontinuedANES naloxone 0.4 mg, 1 mL, Route: IVP, Drug form: INJ, Q2MIN, Dosing Weight 93.182, kg, PRN Narcotic Reversal, Start date: 07/05/16 12:07:00 GROUP RESERVATIONS COORDINATOR, Duration: 8 doses or times , Stop date: 07/06/16 0:00:00 GROUP RESERVATIONS COORDINATOR Notes: Same as Narcan Start Date: 07/05/16 Stop Date: 07/05/16 Status: DiscontinuedANES ondansetron 4 mg, 2 mL, Route: IVP, Drug form: INJ, ONCE, Dosing Weight 93.182, kg, PRN Nausea & Vomiting, Start date: 07/05/16 12:07:00 GROUP RESERVATIONS COORDINATOR Notes: (Same as: Brandon) MEDICATION WASTE Product Size: 4 mgProduct Wasted: ___ mg Start Date: 07/05/16 Stop Date: 07/05/16 Status: Discontinuedbacitracin-polymyxin B topical ointment 1 appl, Route: TOP, QID, Drug form: OINT, PRN Other -See Comment, Start date: 16:02:00 GROUP RESERVATIONS COORDINATOR,Duration: 30 day, Stop date: 08/04/16 16:01:00 GROUP RESERVATIONS COORDINATOR, Substitute Allowed: Always, urethral meatus at huggins - lubircation Notes: (Same As: Polysporin) Start Date: 07/05/16 Stop Date: 07/06/16 Status: DiscontinuedceFAZolin 2 gm, 100 mL, Route: IVPB, Drug form: INJ, PRE OP, Start date: 07/04/16 23:00: 00 GROUP RESERVATIONS COORDINATOR, Duration: 1 day, Stop date: 07/05/16 22:59:00 GROUP RESERVATIONS COORDINATOR Notes: Same as: Ancef Start Date: 07/04/16 Stop Date: 07/05/16 Status: CompletedceFAZolin (SCIP) 1 gm, Route: IVPB, Drug form: PDR/INJ, Q8H, Dosing Weight 93.182, kg, Start date : 07/06/16 21:00:00 GROUP RESERVATIONS COORDINATOR, Duration: 1 doses or times, Stop date: 07/06/16 21:00: 00 GROUP RESERVATIONS COORDINATOR Notes: (Same As: Ancef, Raquel) MEDICATION WASTE Product Size: 1000 mgProduct Wasted: _0__mg Start Date: 07/06/16 Stop Date: 07/06/16 Status: CanceledceFAZolin (SCIP) 1 gm, Route: IVPB, Drug form: PDR/INJ, Q8H, Dosing Weight 93.182, kg, Start date : 07/05/16 16:00:00 GROUP RESERVATIONS COORDINATOR, Duration: 1 doses or times, Stop date: 07/05/16 16:00: 00 GROUP RESERVATIONS COORDINATOR Notes: (Same As: Raquel Blanc) MEDICATION WASTE Product Size: 1000 mgProduct Wasted: _0__mg Start Date: 07/05/16 Stop Date: 07/05/16 Status: DeletedColace 100 mg oral capsule 100 mg, 1 cap, Route: PO, Drug form: CAP, BID, Dosing Weight 92.813, kg, Start date: 07/06/16 17:00:00 GROUP RESERVATIONS COORDINATOR, Duration: 30 day, Stop date: 08/05/16 9:00:00 GROUP RESERVATIONS COORDINATOR Start Date: 07/06/16 Stop Date: 07/06/16 Status: Deleteddocusate sodium 100 mg oral capsule 100 mg, 1 cap, Route: PO, Drug form: CAP, BID, Dosing Weight 93.182, kg, Start date: 07/05/16 17:00:00 GROUP RESERVATIONS COORDINATOR, Duration: 30 day, Stop date: 08/04/16 9:00:00 GROUP RESERVATIONS COORDINATOR Notes: (Same as: Colace) (Do Not Crush) Start Date: 07/05/16 Stop Date: 07/06/16 Status: Discontinueddoxepin 10 mg, 1 cap, Route: PO, Drug form: CAP, TID, Dosing Weight 92.813, kg, Start date: 07/06/16 13:00:00 GROUP RESERVATIONS COORDINATOR, Duration: 30 day, Stop date: 08/05/16 9:00:00 GROUP RESERVATIONS COORDINATOR Notes: (Same as: SINEquan) Start Date: 07/06/16 Stop Date: 07/06/16 Status: Discontinueddoxepin 10 mg oral capsule 10 mg=1 cap, PO, TID, 0 Refill(s) Start Date: 06/03/16 Status: OrderedDulcolax Laxative 5 mg, 1 tab, Route: PO, Drug form: ECTAB, Q24H, Dosing Weight 93.182, kg, PRN Constipation, Start date: 07/05/16 15:59:00 GROUP RESERVATIONS COORDINATOR, Duration: 30 day, Stop date: 15:58:00 GROUP RESERVATIONS COORDINATOR Notes: (Same As: Dulcolax, Correctol) (Do Not Crush) "Do Not Crush" Start Date: 07/05/16 Stop Date: 07/06/16 Status: Discontinuedfamotidine 20 mg, 1 tab, Route: PO, Drug form: TAB, Q12H, Dosing Weight 93.182, kg, Start date: 07/05/16 21:00:00 GROUP RESERVATIONS COORDINATOR, Duration: 30 day, Stop date: 08/04/16 9:00:00 GROUP RESERVATIONS COORDINATOR Notes: (Same as: Pepcid) Start Date: 07/05/16 Stop Date: 07/06/16 Status: DiscontinuedketOROLAC 15 mg, 1 mL, Route: IVP, Drug form: INJ, Q6H, Dosing Weight 93.182, kg, Start date: 07/05/16 18:00:00 GROUP RESERVATIONS COORDINATOR, Duration: 6 doses or times, Stop date: 07/07/16 0: 00:00 GROUP RESERVATIONS COORDINATOR Notes: (Same as:Toradol) IV bolus must be given >15 seconds. Give IM administration slowly and deeply into the muscle. Not for use > 4 days. Start Date: 07/05/16 Stop Date: 07/06/16 Status: DiscontinuedLactated Ringers 1,000 mL 1,000 mL, Rate: 125 ml/hr, Infuse over: 8 hr, Route: IV, Dosing Weight 93.182 kg , Total Volume: 1,000, Start date: 07/05/16 15:59:00 GROUP RESERVATIONS COORDINATOR, Duration: 30 day, Stop date: 08/04/16 15:58:00 GROUP RESERVATIONS COORDINATOR Start Date: 07/05/16 Stop Date: 07/06/16 Status: DiscontinuedLipitor 10 mg, 1 tab, Route: PO, Drug form: TAB, Daily, Dosing Weight 92.813, kg, Start date: 07/07/16 9:00:00 GROUP RESERVATIONS COORDINATOR, Duration: 30 day, Stop date: 08/05/16 9:00:00 GROUP RESERVATIONS COORDINATOR Notes: (Same As: Lipitor) Start Date: 07/07/16 Stop Date: 07/06/16 Status: CanceledLipitor 10 mg oral tablet 10 mg=1 tab, PO, Daily, 0 Refill(s) Start Date: 06/03/16 Status: Orderedlisinopril 20 mg, 1 tab, Route: PO, Drug form: TAB, Daily, Dosing Weight 92.813, kg, Start date: 07/06/16 13:30:00 GROUP RESERVATIONS COORDINATOR, Duration: 30 day, Stop date: 08/05/16 9:00:00 GROUP RESERVATIONS COORDINATOR Notes: (Same as: Prinivil, Zestril) Start Date: 07/06/16 Stop Date: 07/06/16 Status: Discontinuedlisinopril 20 mg oral tablet 20 mg=1 tab, PO, Daily, 0 Refill(s) Start Date: 06/03/16 Status: OrderedmetFORMIN 500 mg oral tablet 500 mg, 1 tab, Route: PO, Drug form: TAB, BID-Meals, Dosing Weight 92.813, kg, Start date: 07/06/16 17:00:00 GROUP RESERVATIONS COORDINATOR, Duration: 30 day, Stop date: 08/05/16 8:00: 00 GROUP RESERVATIONS COORDINATOR Notes: (Same as: Glucophage) Take with meal Start Date: 07/06/16 Stop Date: 07/06/16 Status: CanceledmetFORMIN 500 mg oral tablet 500 mg=1 tab, PO, BID, 0 Refill(s) Start Date: 06/03/16 Status: Orderedmorphine Sulfate 2 mg, 1 mL, Route: IVP, Drug form: INJ, Q3H, Dosing Weight 93.182, kg, PRN Pain Score 1-3, Start date: 07/05/16 15:59:00 GROUP RESERVATIONS COORDINATOR, Duration: 30 day, Stop date: 08/04 15:58:00 GROUP RESERVATIONS COORDINATOR Notes: (Same as:MORPhine Sulfate) Start Date: 07/05/16 Stop Date: 07/06/16 Status: Discontinuedondansetron 4 mg, 2 mL, Route: IVP, Drug form: INJ, Q6H, Dosing Weight 93.182, kg, PRN Nausea & Vomiting, Start date: 07/05/16 15:59:00 GROUP RESERVATIONS COORDINATOR, Duration: 30 day, Stop date: 08/04/16 15:58:00 GROUP RESERVATIONS COORDINATOR Notes: (Same as: Zofran) MEDICATION WASTE Product Size: 4 mgProduct Wasted: ___ mg Start Date: 07/05/16 Stop Date: 07/06/16 Status: Discontinuedzolpidem 5 mg, 1 tab, Route: PO, Drug form: TAB, Bedtime, Dosing Weight 93.182, kg, PRN Insomnia, Start date:07/05/16 15:59:00 GROUP RESERVATIONS COORDINATOR, Duration: 30 day, Stop date: 15:58:00 GROUP RESERVATIONS COORDINATOR Notes: (Same As: Alyssa) Start Date: 07/05/16 Stop Date: 07/06/16 Status: Discontinued Results BLOOD BANK RESULTS Most recent to oldest [Reference Range]: 1 2 ABO/Rh O POS *Unknown* (07/05/16 11:07 AM) Antibody Scrn Negative (07/05/16 11:07 AM) ELECTROLYTES Most recent to oldest [Reference Range]: 1 2 Sodium Lvl [135-145 mEq/L] 136 mEq/L 141 mEq/L (07/05/16 4:29 PM) (07/02/16 4:30 PM) Potassium Lvl [3.5-5.1 mEq/L] 4.6 mEq/L 4.6 mEq/L (07/05/16 4:29 PM) (07/02/16 4:30 PM) Chloride Lvl [95-109 mEq/L] 102 mEq/L 103 mEq/L (07/05/16 4:29 PM) (07/02/16 4:30 PM) CO2 [24-32 mEq/L] 25 mEq/L 28 mEq/L (07/05/16 4:29 PM) (07/02/16 4:30 PM) AGAP [10.0-20.0 mEq/L] 13.6 mEq/L 14.6 mEq/L (07/05/16 4:29 PM) (07/02/16 4:30 PM) CHEM PANEL Most recent to oldest [Reference Range]: 1 2 Creatinine Lvl [0.50-1.40 mg/dL] 1.31 mg/dL 1.21 mg/dL (07/05/16 4:29 PM) (07/02/16 4:30 PM) eGFR 62 mL/min/1.73m2 1 68 mL/min/1.73m2 2 *NA* *NA* (07/05/16 4:29 PM) (07/02/16 4:30 PM) BUN [7-22 mg/dL] 14 mg/dL 18 mg/dL (07/05/16 4:29 PM) (07/02/16 4:30 PM) B/C Ratio [6-25] 11 (07/05/16 4:29 PM) Glucose Lvl [70-99 mg/dL] 161 mg/dL 104 mg/dL *HI* *HI* (07/05/16 4:29 PM) (07/02/16 4:30 PM) Total Protein [6.4-8.4 g/dL] 7.1 g/dL (07/05/16 4:29 PM) Albumin Lvl [3.5-5.0 g/dL] 3.8 g/dL (07/05/16 4:29 PM) Globulin [2.7-4.2 g/dL] 3.3 g/dL (07/05/16 4:29 PM) A/G Ratio [0.7-1.6] 1.2 (07/05/16 4:29 PM) Calcium Lvl [8.5-10.5 mg/dL] 8.8 mg/dL 10.1 mg/dL (07/05/16 4:29 PM) (07/02/16 4:30 PM) ALT [0-65 unit/L] 22 unit/L (07/05/16 4:29 PM) AST [0-37 unit/L] 14 unit/L (07/05/16 4:29 PM) Alk Phos [39-136 unit/L] 75 unit/L (07/05/16 4:29 PM) Bili Total [0.2-1.3 mg/dL] 0.6 mg/dL (07/05/16 4:29 PM) 1Result Comment: The eGFR is calculated [...] eGFR should be multiplied by the estimated BMI.2Result Comment: The eGFR is calculated using the CKD-EPI formula. In most young, healthy individualsthe eGFR will be >90 mL/ min/1.73m2. The [...] eGFR should be multiplied by the estimated BMI.SPECIAL CHEMISTRY Most recent to oldest [Reference Range]: 1 2 Hgb A1C [<=5.6 %] 6.0 % *HI* (07/02/16 4:30 PM) PARATHYROID PROFILE Most recent to oldest [Reference Range]: 1 2 Ca Ion WB [1.05-1.25 mMol/L] 1.14 mMol/L (07/05/16 4:29 PM) Ca Norm WB [1.05-1.25 mMol/L] 1.10 mMol/L (07/05/16 4:29 PM) URINE AND STOOL Most recent to oldest [Reference Range]: 1 2 UA Turbidity [Clear] Clear (07/02/16 4:30 PM) UA Color [Yellow] Yellow *NA* (07/02/16 4:30 PM) UA pH [5.0-8.0] 6.0 (07/02/16 4:30 PM) UA Spec Grav [<=1.030] 1.018 (07/02/16 4:30 PM) UA Glucose [Negative mg/dL] Negative mg/dL *NA* (07/02/16 4:30 PM) UA Blood [Negative] Trace *ABN* (07/02/16 4:30 PM) UA Ketones [Negative mg/dL] Negative mg/dL *NA* (07/02/16 4:30 PM) UA Protein [Negative mg/dL] Negative mg/dL (07/02/16 4:30 PM) UA Urobilinogen [0.1-1.0 EU/dL] 0.2 EU/dL (07/02/16 4:30 PM) UA Bili [Negative] Negative *NA* (07/02/16 4:30 PM) UA Leuk Est [Negative] Negative (07/02/16 4:30 PM) UA Nitrite [Negative] Negative (07/02/16 4:30 PM) UA WBC [0-5 /HPF] 1 /HPF (07/02/16 4:30 PM) UA RBC [0-2 /HPF] 15 /HPF *HI* (07/02/16 4:30 PM) UA Sq Epi RARE *NA* (07/02/16 4:30 PM) UA Mucus [None Seen /LPF] Few /LPF *NA* (07/02/16 4:30 PM) HEMATOLOGY Most recent to oldest [Reference Range]: 1 2 WBC [3.7-10.4 K/CMM] 13.3 K/CMM 8.1 K/CMM *HI* (07/02/16 4:30 PM) (07/05/16 4:29 PM) RBC [4.70-6.10 M/CMM] 4.21 M/CMM 4.42 M/CMM *LOW* *LOW* (07/05/16 4:29 PM) (07/02/16 4:30 PM) Hgb [14.0-18.0 g/dL] 13.5 g/dL 14.6 g/dL *LOW* (07/02/16 4:30 PM) (07/05/16 4:29 PM) Hct [42.0-54.0 %] 40.2 % 42.4 % *LOW* (07/02/16 4:30 PM) (07/05/16 4:29 PM) MCV [80.0-94.0 fL] 95.3 fL 96.0 fL *HI* *HI* (07/05/16 4:29 PM) (07/02/16 4:30 PM) MCH [27.0-31.0 pg] 31.9 pg 33.0 pg *HI* *HI* (07/05/16 4:29 PM) (07/02/16 4:30 PM) MCHC [32.0-36.0 g/dL] 33.5 g/dL 34.4 g/dL (07/05/16 4:29 PM) (07/02/16 4:30 PM) RDW [11.5-14.5 %] 12.6 % 12.5 % (07/05/16 4:29 PM) (07/02/16 4:30 PM) Platelet [133-450 K/CMM] 250 K/CMM 254 K/CMM (07/05/16 4:29 PM) (07/02/16 4:30 PM) MPV [7.4-10.4 fL] 7.7 fL 7.7 fL (07/05/16 4:29 PM) (07/02/16 4:30 PM) Segs [45.0-75.0 %] 95.7 % 74.2 % *HI* (07/02/16 4:30 PM) (07/05/16 4:29 PM) Lymphocytes [20.0-40.0 %] 3.3 % 18.8 % *LOW* *LOW* (07/05/16 4:29 PM) (07/02/16 4:30 PM) Monocytes [2.0-12.0 %] 0.9 % 6.0 % *LOW* (07/02/16 4:30 PM) (07/05/16 4:29 PM) Eosinophils [0.0-4.0 %] 0.3 % (07/02/16 4:30 PM) Basophils [0.0-1.0 %] 0.1 % 0.7 % (07/05/16 4:29 PM) (07/02/16 4:30 PM) Segs-Bands # [1.5-8.1 K/CMM] 12.7 K/CMM 6.0 K/CMM *HI* (07/02/16 4:30 PM) (07/05/16 4:29 PM) Lymphocytes # [1.0-5.5 K/CMM] 0.4 K/CMM 1.5 K/CMM *LOW* (07/02/16 4:30 PM) (07/05/16 4:29 PM) Monocytes # [0.0-0.8 K/CMM] 0.1 K/CMM 0.5 K/CMM (07/05/16 4:29 PM) (07/02/16 4:30 PM) Basophils # [0.0-0.2 K/CMM] 0.1 K/CMM (07/02/16 4:30 PM) PT [12.0-14.7 seconds] 13.4 seconds (07/02/16 4:30 PM) INR [0.85-1.17] 1.00 (07/02/16 4:30 PM) D-Dimer 0.27 ug/mL FEU *NA* (07/02/16 4:30 PM) PTT [22.9-35.8 seconds] 30.4 seconds (07/02/16 4:30 PM) R-time [5.0-10.0 minutes] 3.9 minutes *LOW* (07/02/16 4:30 PM) K-time [1.0-3.0 minutes] 1.3 minutes (07/02/16 4:30 PM) Angle [53.0-72.0 degrees] 70.3 degrees (07/02/16 4:30 PM) Max Amp [50.0-70.0 mm] 65.9 mm (07/02/16 4:30 PM) G-value [4.5-11.0 K d/sc] 9.7 K d/sc (07/02/16 4:30 PM) Ly30 [0.0-7.5 %] 0.0 % (07/02/16 4:30 PM) Coag Index [-3.0-3.0] 2.6 (07/02/16 4:30 PM) TEG Data See Note (07/02/16 4:30 PM) Immunizations No data available for this section Procedures Procedure Date Related Diagnosis Body Site Prostatectomy 07/05/16 Social History Social History Type Response Alcohol Current, Type Liquor. Frequency: Daily. Smoking Status Former smoker; Type: Cigarettes; Exposure to Tobacco Smoke None ; Other Tobacco Frequency quit 3 years ago; Cigarette Smoking Last 365 Days No; Reg Smoking Cessation Counseling No Assessment and Plan Extracted from: Title: Clinical Document Author: Kailyn Davila PA-C Date: 07/06/16 Patient: Stevenson Espinosa [place] 1965 MRN Date: 07/05/2016 OPERATIVE REPORT PRE-OPERATIVE DIAGNOSIS Carcinoma of the prostate, T1c POST-OPERATIVE DIAGNOSIS - Same PROCEDURE 1. Robotic-assisted laparoscopic radical prostatectomy, extra peritoneal approach 2. En bloc bladder neck resection with bladder neck reconstruction 3. >50% Nerve resection bilaterally 4. Robotic-assisted laparoscopic bilateral extended pelvic lymph node dissection 5. Robotic-assisted laparoscopic anterior and posterior reconstruction of the rhabdosphincter 1st EARLY INTERVENTIONIST Kieran Crystal - LSA/ Link Surgical ANESTHESIA General endotracheal INDICATIONS Mr. Espinosa is a 51 year old male recently diagnosed with prostate cancer. He presented for a second opinion on treatment options for recently diagnosed prostate cancer. He was diagnosed by Dr. Torrez [place]. His PSA was 20.3, this was his first PSA. Biopsy of 12 systematic cores + SV biopsy (negative) showed 12/12 positive cores [place] 7- 9. Max % cancer is 100% at LLA [place] 4+4. Dr. Arce recommended surgery and began the patient on Casodex. No known family h/ o prostate cancer. CT and Bone scan completed April 2016 were unremarkable for metastasis. We recommended mpMRI of the p rostate when we visited at our initial consult. MpMRI indicated bilateral seminal vesicle invasion, and suspicion of metastatic disease in the left iliac lymph nodes. I had a long talk with the patient about prostate cancer, the clinical features of this cancer including the significant volume of cancer at the base of the prostate and its implications, and the risks and benefits of watchful waiting, r adiation therapy, cryotherapy and surgery, both open and robotic. After reviewing all options with him in detail, he opted to undergo surgery which will be performed today. We discussed in detail that surgery today would likely not be curative. FINDINGS Due to the significant amount of cancer at the base of the prostate, a wide en bloc excision of the bladder neck all the way to the ureteral orifices was performed, removing the prostate, seminal vesicles, and bladder neck in one specimen with minimum dissection between them. The large defect in the bladder was then closed as described below. 1st EARLY INTERVENTIONIST ROLE IN THE PROCEDURE The 1st library serials assistant was positioned on the right hand side of the patient throughout the procedure and the surgeon was positioned on the left hand side during the initial phase of the operation, until the [employer] Janessa robot slave was docked and the instruments inserted through the robotic trocars, after which the surgeon moved to the master console in order to operate the robotic arms. The prim shlioh library serials assistant to the surgeon inserted a 20Fr Huggins catheter within the sterile surgical field. The 1st library serials assistant assisted the surgeon during the incision, creation of the surgical space, placement of t he trocars, both robotic and standard laparoscopic, and insertion of the camera and the surgical instruments. After the surgeon moved to the master console, the 1st library serials assistant remained at the pili ent s right side, performing the following tasks during the procedure: readjustment of the robotic arms, insertion, removal and exchange of the robotic instruments, insertion and removal of sutures, needles, and specimens, suction, retraction cutting of sutures, manipulating the Enseal Bishop device, etc. Near the end of the procedure, the 1st library serials assistant assisted the surgeon in undocking the da Janessa robot slave , and closure of all incisions and trocar sites. DESCRIPTION OF PROCEDURE IN DETAIL The patient was brought to the operating room and placed in the supine position. The patient was placed supine on a split leg table, with the arms tucked and padded at the sides as well. The table was then placed in mild Trendelenburg. The abdomen was shaved from the costal margin to the pubic bone; and the abdomen, penis, scrotum, and upper thighs as well as the perianal region were sterilely prep ped and draped. A 20-Faroese 2-way Huggins catheter was passed per urethra into the bladder and 15 cc placed in the balloon. 0.5% Marcaine with epinephrine was used for local anesthesia at all port sites . A 2-cm midline incision was made two fingersbreadth below the umbilicus and carried through Herbert's fascia. The anterior rectus fascia was divided in the midline as well, exposing the posterior rec tus fascia in the midline between the two rectus muscles. Blunt finger dissection was carried out between and below the rectus muscle belly on either side, developing the retropubic space of Retzius. A 2-0 Prolene suture was used to secure the upper edge of the fascial incision and tagged with a rubber-shod clamp. A kidney-shaped hernia dissecting balloon was passed under direct vision into this sp stephanie and the balloon inflated to further extend the space of Retzius. A 12-mm extraperitoneal balloon port was then placed into this space and the balloon inflated with 30 cc of air. The space of Retzi us was then insufflated to a pressure of 13 mmHg. Robotic and non-robotic trocar positions were marked out on the abdomen with a felt-tipped pen and infiltrated with local anesthetic. The 0-degree rig id laparoscope was used to inspect the space of Retzius and blunt dissection used to further deflect the peritoneum cephalad. The 8-mm left instrument-arm cannula was then inserted between the left ant erior superior iliac spine and the camera port in the midclavicular line. In a similar fashion, the right instrument-arm cannula was also placed between the umbilicus and the anterior iliac spine along the midclavicular line. Care was taken to avoid injury to the inferior epigastric vessels. The fourth robotic trocar was placed just medial to the left anterior-superior iliac spine, and 2 additional One-Step ports, one 12 mm and one 5 mm, were then inserted, one placed proximal and medial to the right instrument-arm cannula to facilitate delivery of sutures and removal of needles and one in the mi dline intermediate between the umbilicus and the pubis. These two ports were sutured into position. The surgical cart was then rolled into position, aligning the endoscopic arm and the endoscopic port in a straight line. The arms of the surgical cart were positioned in order to clear the height of the patient's legs. The endoscopic arm was then lowered and secured to the 12-mm cannula, and the 0-degree lens was inserted. The 3 robotic arms were then docked into position as well. On the left side, a Pro-Grasp forceps was passed through the far-left robotic port, and a Fenestrated bipolar was passed through the more medial second left robotic port. On the right side the "hot" pablo was passed through the right robotic trocar. Next, fat overlying the anterior prostate was swept cephalad and later ally, facilitating the definition of the prostatovesical junction. The superficial vein of Santorini was coagulated and divided. The endopelvic fascia was then incised on its line of reflection on bot h the right and left sides, allowing gentle blunt dissection of the levator ani muscles laterally. The puboprostatic ligaments were divided as well with the "hot" pablo close to the prostate on the ri ght and left sides. Next, the dorsal vein complex was ligated with #0 Vicryl [id number] sutures on a CT-1 needle at the level of the mid prostate. An additional #[address]-1 needles were placed at the bladder neck just proximal to the prostatovesical junction both to facilitate hemostasis and to serve as a "handle" for the anterior bladder wall. The lens was then changed to the 30 -degree "down" view. Next, the plane between the prostate and the bladder neck was identified laterally and the boundary further developed by dissection with the "hot" pablo, followed by the Weck clip s placed laterally on the pedicles to the bladder, before dividing them with the hot pablo, avoiding injury to the neurovascular bundles. This was continued until the anterior bladder was opened in a 180-degree fashion, and the Huggins catheter was visualized inside the bladder and its balloon deflated. The Huggins catheter was grasped with a bowel grasper passed through the 5 mm port and pulled anteri tremaine to help elevate the prostate and to provided counter traction. The dissection was continued through the posterior wall of the bladder, encompassing the entire bladder neck up to the level of the u retreal orifices, until the seminal vesicles and vas deferentia were identified. These were dissected free on both the right and left sides and the vas deferens divided bilaterally as well. The prosta te pedicles were then dissected and clipped using Weck clips on both the right and left sides, further dropping and releasing them posteriorly, avoiding the use of cautery to protect them. Dissection w as carried forth in an antegrade fashion, until the prostate was completely mobilized to the apex. Right prostate pedicle sample was sent for frozen specimen and the area was tagged with 10 mm metal per manent clips x3. Next, using the cold scissors, lateral pelvic fascia overlying the neurovascular bundles were released and the bundles further swept off of the prostate in a retrograde fashion. A 2-0 V-Loc suture on a CT-1 needle was used to suture ligate the distal-most DVC, just past the prostatic apex, on top of the urethra. The dorsal venous complex was then divided with the hot pablo and the urethra further exposed. The urethra was then divided along a 270 portion of the anterior aspect, leaving the posterior urethra intact. A 5-0 prolene suture on an RB-1 needs was then passed through the posterior urethra and secured with a Laparotie, to be used as a handle during the anastomosis. The remainder of the posterior urethra was than divided , and the posterior portion of the rhabodsphin cter was mobilized and divided from the prostatic apex as well. The remainder of the NVB dissection was then completed and Weck clips used to ligate the remaining portions of the prostate pedicles bila terally, before dividing them and freeing the specimen. The specimen was placed in an Endobag, the robotic camera port was undocked and the trocar deflated and removed. The specimen was delivered thro ugh this midline incision before resetting the camera port and re-docking the robot with the 30 degree lens replaced through the camera port. There was minimal bleeding noted and both neurovascular bun dles appeared intact. An extended bilateral pelvic lymph node dissection was then performed, removing all nodes in the iliac, hypogastric and obturator regions, which were then sent to pathology for p ermanent section. The bladder neck, was reconstructed using a running 3-0 Vicryl suture. Next, the posterior rhabdosphincter was identified and a 3-0 V- Loc suture on a V-20 tapered needle was secured to the proximal cut edge of Denonviller s fascia and the edge of the peritoneum of the Pouch of Star. These sutures were then passed 2 cm proximal to the reconstructed bladder neck and tied, bringi ng the bladder neck in close proximity to the urethra and re-creating the proper angle of the rhabdosphincter and extending the length of the rhabdosphincter, with the urethral stump buried within its m uscular tube. Evaseal was sprayed throughout the pelvic area, and along the NVBs for hemostasis and prevention of lymphocele. Next, the anastomosis was then completed using the Van Veltoven technique, first by passing a double-armed interlocked V-Loc suture of #3-0 Monocryl suture on RB-1 needles, each arm 7 inches long and tied to each other into the retropubic space. The posterior lip of the blad portillo was sutured in a running fashion to the posterior urethra, which was pulled into view using the prior placed 5-0 prolene handle and using perineal pressure, in a counter-clockwise fashion usin g the undyed arm of the suture. A large knot tied between the 2 arms of the suture allowed tightening of the posterior anastomosis without tying any further knots. A transition stitch from inside to o utside on the left lateral wall of the bladder at the 4 o'clock position was placed and then passed to the ProGrasp to hold the suture. The Huggins catheter was then passed into the bladder. The dyed po rtion of the suture was then used to sew the right lateral aspect of the anastomosis to the 12 o'clock position. The left side was then completed to the 12 o'clock position before tying these 2 arms to each other to complete the anastomosis. A final 3-0 Vicryl mattress suture was used to reapproximate the distal cut edge of the DVC fascia to the cut anterior edge of the bladder, and additional 3-0 Vicryl sutures were used to recreate the pubo-prostatic ligaments. The catheter was then filled with 120 cc of sterile water, and under direct vision the anastomosis was noted to be watertight. A Joseph son-Fox drain was passed through the right 10-mm port into the pelvis and secured with a nylon suture. The skin was closed with subcutaneous #4-0 plain catgut sutures and #4-0 Vicryl for skin. Steri le dressings were applied. The patient tolerated the procedure well and left the operating room in stable condition. Rashid Lam M.D. Extracted from: Title: Clinical Document Author: Kialyn Davila PA-C Date: 07/06/16 Discharge Summary Admission Date: 07/05/16 Discharge Date: 07/06/16 Diagnoses: Prostate Cancer Procedures: Robotic Assisted Laproscopic Prostatectomy and Bilateral Pelvic Lymph Node Dissection Chief Complaint: Prostate Cancer Hospital course: The patient was recently diagnosed Prostate Cancer on by Dr. Arce. He presented to [facility] for a second opinion on treatment options. Biopsy revealed all 12/12 cores positive, [place] 7-9. Patient was started on Casodex. A full review of the initial doiagnosis was conducted with the patient. We recommended mpMRI of the prostate which which was suspicious of metastas is to the left illiac lymph nodes. . The options for treatment including Robotic Assisted Laproscopic prostatectomy were discussed with the patient. We discussed that surgert alone would not likely be curative. We recommended surgery with extensive bilateral lymph node dissection. After full discussion of the procedure, possible outcomes, and post- operative care and managment, the patient opted for s urgery. Surgery was completed 07/05/16 unremarkable and the patient tolerated the procedure well. POD#1 he is doing well and will be discharged home with the huggins and the MADIE drain in place. Discharge condition: Stable Recent signficant physical findings: GEN: A7O x4, normal speech and affect ABD: non distented. mild TTP. MADIE present and set to drainage with serosanginous Fluid. incisions (5) c/d/i, healing well EXT: no edema, SCD present : Huggins catheter draining well, yellow urine. Recent significant lab & radiology results: [facility] BUN: 14 mg/dL (07/05/16) Hct: 40.2 % Low (07/05/16) Hgb: 13.5 g/dL Low (07/05/16) MCH: 31.9 pg High (07/05/16) MCHC: 33.5 g/dL (07/05/16) MCV: 95.3 fL High (07/05/16) MPV: 7.7 fL (07/05/16) Platelet: 250 K/CMM (07/05/16) RBC: 4.21 M/CMM Low (07/05/16) RDW: 12.6 % (07/05/16) WBC: 13.3 K/CMM High (07/05/16) Discharge therapy: Medications: See discharge reconciliation Diet : Regular adult diet Activity: No driving for 2 weeks, no heavy lifting, monitor urine Follow up : 1 week for cystogram Wound Care: Please review how to monitor MADIE Drain output. Patient can return to clinic when output is 100cc or less in a 24 hour period. Extracted from: Title: Clinical Document Author: Kailyn Davila PA-C Date: 07/05/16 Attending: Rashid Lam MD Service: Urology Code status: None Specified=FULL CODE Reason for Admission: PROSTATE CANCER Working DRG: None Documented Isolation: None Documented Consulting Physicians: (none on file) HPI: He is a 51 year old patient here today for a second opinion on treatment options for recently diagnosed prostate cancer. He was diagnosed by Dr. Torrez in [place] on 04/16/16. His PSA was 20.3, this was his first PSA. Biopsy of 12 systematic cores + SV biopsy (negative) showed 12/ 12 positive cores archana 7-9. Max % cancer is 100% at LLA [place] 4+4. Patient would like to have surgery as soon as possi ble. Dr. Arce recommended surgery and began the patient on Casodex- he has been on it for 1 week at this time. PMH included DM, HTN, hypercholesterolemia. No known family h/o prostate cancer. CT and Martin ne scan completed April 2016 were unremarkable for mets. 07/01/16: Patient is here to review recent mpMRI as noted below. Patient continues on Casodex at this time. 07/02/16: He is here for pre- op evaluation for planned RALP BPLND. ROS Constitutional: no fever, no weight loss, no weight gain, no fatigue, no malaise Cardiovascular: no chest pain, no SOB, no palpitations Respiratory: no cough, Gastrointestinal: no NVD, no diarrhea, no constipation, no abdominal pain Genitourinary: no dysuria, no frequency, no urgency, no nocturia, no incontinence Musculoskeletal: no arthralgia, no myalgia, no stiffness Neurological: no weakness, no headache, no seizure, no dizziness, no tingling, no numbness Psychiatric: no anxiety, no depression, no insomnia Allergic/Immunologic: no rash, no allergies, no fever, no chills PE: General: well developed, well nourished, in no acute distress. Eyes: PERRL/EOM intact, conjunctiva and sclera clear without nystagmus. Lungs: clear bilaterally to auscultation without wheezing or rhonchi, good aeration. Heart: non-displaced PMI, chest non-tender; regular rate and rhythm, S1, S2 without murmurs, rubs, or gallops Abdomen: normal bowel sounds; no hepatosplenomegaly no ventral, umbilical hernias or masses noted. : No suprapubic tenderness,No L-CVAT, R-CVAT Extremities: No swelling, edema, or cyanosis [facility] AGAP: 14.6 mEq/L (07/02/16) Angle: 70.3 degrees (07/02/16) Basophils: 0.7 % (07/02/16) Basophils #: 0.1 K/CMM (07/02/16) BUN: 18 mg/dL (07/02/16) Calcium Lvl: 10.1 mg/dL (07/02/16) Chloride Lvl: 103 mEq/L (07/02/16) CO2: 28 mEq/L (07/02/16) Coag Index: 2.6 (07/02/16) Creatinine Lvl: 1.21 mg/dL (07/02/16) Culture: Urine: NEG (07/04/16) D-Dimer: 0.27 ug/mL FEU (07/02/16) eGFR: 68 mL/min/1.73m2 (07/02/16) Eosinophils: 0.3 % (07/02/16) G-value: 9.7 K d/sc (07/02/16) Glucose Lvl: 104 mg/dL High (07/02/16) Glucose POC: 142 mg/dL High (07/05/16) Hct: 42.4 % (07/02/16) Hgb: 14.6 g/dL (07/02/16) Hgb A1C: 6.0 % High (07/02/16) INR: 1.00 (07/02/16) K-time: 1.3 minutes (07/02/16) Ly30: 0.0 % (07/02/16) Lymphocytes: 18.8 % Low (07/02/16) Lymphocytes #: 1.5 K/CMM (07/02/16) Max Amp: 65.9 mm (07/02/16) MCH: 33.0 pg High (07/02/16) MCHC: 34.4 g/dL (07/02/16) MCV: 96.0 fL High (07/02/16) Monocytes: 6.0 % (07/02/16) Monocytes #: 0.5 K/CMM (07/02/16) MPV: 7.7 fL (07/02/16) Platelet: 254 K/CMM (07/02/16) POC Creatinine: 0.9 mg/dL (06/26/16) POC UA Bili: Negative (07/01/16) POC UA Bld: Small Abnormal (07/01/16) POC UA Color: Yellow (07/01/16) POC UA Glu: Negative (07/01/16) POC UA Ket: Negative (07/01/16) POC UA LeukEst: Negative (07/01/16) POC UA Nit: Negative (07/01/16) POC UA pH: 6.5 (07/01/16) POC UA Prot: Negative (07/01/16) POC UA S.010 (07/01/16) POC UA Turbidity: Clear (07/01/16) POC UA Uro: 0.2 EU/dL (07/01/16) Potassium Lvl: 4.6 mEq/L (07/02/16) PT: 13.4 seconds (07/02/16) PTT: 30.4 seconds (07/02/16) R-time: 3.9 minutes Low (07/02/16) RBC: 4.42 M/CMM Low (07/02/16) RDW: 12.5 % (07/02/16) Segs: 74.2 % (07/02/16) Segs-Bands #: 6.0 K/CMM (07/02/16) Sodium Lvl: 141 mEq/L (07/02/16) TEG Data: See Note (07/02/16) TSH: 0.774 uIU/mL (07/02/16) UA Bili: NEG (07/02/16) UA Blood: cTrace Abnormal (07/02/16) UA Color: Yellow (07/02/16) UA Glucose: NEG (07/02/16) UA Ketones: NEG (07/02/16) UA Leuk Est: NEG (07/02/16) UA Mucus: cFew (07/02/16) UA Nitrite: NEG (07/02/16) UA pH: 6.0 (07/02/16) UA Protein: NEG (07/02/16) UA RBC: 15 /HPF High (07/02/16) UA Spec Grav: 1.018 (07/02/16) UA Sq Epi: RARE (07/02/16) UA Turbidity: Clear (07/02/16) UA Urobilinogen: 0.2 EU/dL (07/02/16) UA WBC: 1 /HPF (07/02/16) WBC: 8.1 K/CMM (07/02/16) PMH: Bone fracture Elevated PSA Hypertension High cholesterol PLAN: Prostate cancer: RALP w/BPLND
--- OUTSIDE RECORDS SUMMARY | 2018-12-03 15:29 | XMS REPORT | Summary of Care ---
:1965 Demographics Address [address] [place] [address]- Email Address Preferred Language Ukrainian Marital Status Roman Catholic Affiliation None Race Other Ethnic Group Not or Author Organization [facility] [place] Address [address], [place] [address]- Encounter HQ Encntr_alias(FIN) [id number] Date(s): 07/19/16 - 07/19/16 [facility] [address] [place] [address]- [phone] Discharge Disposition: Home or Self Care Attending [...] Procedures Procedure Date Related Diagnosis Body Site Injection procedure for cystography or voiding 07/19/16 urethrocystography Prostatectomy 07/05/16 Social History Social History Type Response Alcohol Current, Type Liquor. Frequency: Daily. Smoking Status Former smoker; Type: Cigarettes; Exposure to Tobacco Smoke None ; Other Tobacco Frequency quit 3 years ago; Cigarette Smoking Last 365 Days No; Reg Smoking Cessation Counseling No Assessment and Plan No data available for this section
--- OUTSIDE RECORDS SUMMARY | 2018-12-03 15:29 | XMS REPORT | Summary of Care ---
:1965 Demographics Address [address] [place] [address]- Email Address Preferred Language Maltese Marital Status Zoroastrian Affiliation None Race Other Ethnic Group Not or Author Organization [facility] Address [address] [place], [place] [address]- Encounter HQ Encntr_alias(FIN) [id number] Date(s): 10/14/16 - 10/14/16 [facility] [address] [place] [address]- [phone] Discharge Disposition: Home or Self Care Attending Physician: Rashid Lam MD Vital Signs No data available for this section Problem List Condition Effective Dates Status Health Status Informant Bone fracture(Confirmed) Resolved High cholesterol(Confirmed) Resolved Hypertension(Confirmed) Resolved HTN (hypertension)(Confirmed) Active Prostate cancer(Confirmed) Active PC (prostate cancer)(Confirmed) Active Urinary incontinence, Active mixed(Confirmed) BPH (benign prostatic Resolved hyperplasia)(Confirmed) Elevated PSA(Confirmed) [...]
[2018-12-03 17:16] LABS: Urine RBC >50 /HPF (NONE SEEN)
[2018-12-03 17:17] LABS: Urine Bacteria <20 /HPF (NONE SEEN); Urine Culture Reflex Order NOT NEEDED
--- NOTE | 2018-12-03 18:29 | ER ---
Nurse's Notes [facility] Name: Judit Espinosa Age: 53 yrs Sex: Male : 1965 Arrival Date: 12/03/2018 Time: 15:26 Bed 18 Private MD: Diagnosis: Retention of urine Presentation: 12/03 15:28 Presenting complaint: Patient states: Unable to urinate since this morning. Transition la1 of care: patient was not received from another setting of care. Onset of symptoms was December 03, 2018. Risk Assessment: Do you want to hurt yourself or someone else? Patient reports no desire to harm self or others. Initial Sepsis Screen: Does the patient meet any 2 criteria? No. Patient's initial sepsis screen is negative. Does the patient have a suspected source of infection? No. Patient's initial sepsis screen is negative. Care prior to arrival: None. 15:28 Method Of Arrival: Ambulatory la1 15:28 Acuity: AVIS 3 la1 Triage Assessment: 15:30 General: Appears distressed, uncomfortable, Behavior is cooperative, appropriate for bp age, agitated. Pain: Complains of pain in suprapubic area. EENT: No deficits noted. Neuro: No deficits noted. Cardiovascular: No deficits noted. Respiratory: No deficits noted. GI: No deficits noted. : Reports inability to void. Derm: No deficits noted. Musculoskeletal: Circulation, motion, and sensation intact. Range of motion: intact in all extremities. Historical: - Allergies: 15:28 No Known Allergies; la1 - PMHx: 15:28 bladder/prostate CA; la1 - PSHx: 15:28 Prostatectomy; bladder sx for CA; la1 - Immunization history:: Adult Immunizations up to date. - Social history:: Smoking status: Patient/guardian denies using tobacco. - Ebola Screening: : No symptoms or risks identified at this time. Screenin:30 Abuse screen: Denies threats or abuse. Denies injuries from another. Nutritional bp screening: No deficits noted. Tuberculosis screening: No symptoms or risk factors identified. Fall Risk None identified. Assessment: 15:30 General: SEE TRIAGE NOTE. bp 16:30 Reassessment: BLADDER SCANNER 480ML. UNABLE TO PASS 3-WAY MORALES, PROVIDER NOTIFIED. bp 17:30 Reassessment: MORALES IN PLACE AND DRAINING, PROVIDER NOTIFIED. bp 18:00 Reassessment: MORALES CHANGED TO LEG BAG. bp 18:45 Reassessment: PT ELOPED WITHOUT D/C PAPERS. LAST SEEN IN STABLE CONDITION. bp Vital Signs: 15:29 Resp 20; Temp 98.8; Pulse Ox 98% on R/A; Weight 97.52 kg; Height 6 ft. 1 in. (185.42 la1 cm); Pain 10/10; 17:01 BP 131 / 87; Pulse 87; Resp 16; Temp 98.9(TE); Pulse Ox 99% on R/A; mh5 18:00 BP 145 / 92; Pulse 90; Resp 16; Pulse Ox 99% ; bp 15:29 Body Mass Index 28.37 (97.52 kg, 185.42 cm) la1 ED Course: 15:26 Patient arrived in ED. as 15:29 Triage completed. la1 15:29 Arm band placed on right wrist. la1 15:34 Beverley Whittington [facility]-C [facility]. snw 15:34 Jignesh Lazaro MD is Attending Physician. snw 15:45 David Castañeda, TARIQ is Primary Nurse. bp 16:40 Morales cath inserted, using sterile technique, 16 Fr., by ar, balloon inflated, to bp gravity drainage, urine specimen collected. 16:53 Patient has correct armband on for positive identification. Placed in gown. Call light mh5 in reach. Side rails up X 1. Warm blanket given. Pulse ox on. NIBP on. 16:53 Bladder scan completed. 483. mh5 18:45 No provider procedures requiring assistance completed. Patient did not have IV access bp during this emergency room visit. Administered Medications: No medications were administered Outcome: 18:28 Discharge ordered by . snw 18:46 Eloped from patient exam room, after seeing physician PRIOR TO D/C bp 18:49 Patient left the ED. bp Signatures: Beverley Whittington FNP-C FNP-Rachana Corley Lee, RN RN la1 Tonya Sanchez [facility] David Castañeda, RN RN bp Corrections: (The following items were deleted from the chart) 18:12 16:30 Reassessment: UNABLE TO PASS 3-WAY MORALES, PROVIDER NOTIFIED bp bp
--- NOTE | 2018-12-03 18:29 | EDPHYS ---
Physician Documentation [facility] Name: Judit Espinosa Age: 53 yrs Sex: Male : 1965 Arrival Date: 12/03/2018 Time: 15:26 Bed 18 Private MD: ED Physician Jignesh Lazaro HPI: 12/03 15:48 This 53 yrs old Male presents to ER via Ambulatory with complaints of Urinary snw Retention. 15:48 The patient presents with tenderness, that is severe, suprapubic area. Onset: The snw symptoms/episode began/occurred suddenly, today. Associated signs and symptoms: Pertinent positives: abdominal pain. Severity of symptoms: At their worst the symptoms were severe. The patient has experienced a previous episode. surgery on Tuesday. Pt took his catheter out on . Voiding without diff until this am. Historical: - Allergies: 15:28 No Known Allergies; la1 - PMHx: 15:28 bladder/prostate CA; la1 - PSHx: 15:28 Prostatectomy; bladder sx for CA; la1 - Immunization history:: Adult Immunizations up to date. - Social history:: Smoking status: Patient/guardian denies using tobacco. - Ebola Screening: : No symptoms or risks identified at this time. ROS: 15:46 Constitutional: Negative for fever, chills, and weight loss, Eyes: Negative for injury, snw pain, redness, and discharge, ENT: Negative for injury, pain, and discharge, Neck: Negative for injury, pain, and swelling, Cardiovascular: Negative for chest pain, palpitations, and edema, Respiratory: Negative for shortness of breath, cough, wheezing, and pleuritic chest pain, Abdomen/GI: Negative for abdominal pain, nausea, vomiting, diarrhea, and constipation, Back: Negative for injury and pain, MS/Extremity: Negative for injury and deformity, Skin: Negative for injury, rash, and discoloration, Neuro: Negative for headache, weakness, numbness, tingling, and seizure. 15:46 : Positive for urinary retention. Exam: 15:46 Head/Face: Normocephalic, atraumatic. Eyes: Pupils equal round and reactive to light, snw extra-ocular motions intact. Lids and lashes normal. Conjunctiva and sclera are non-icteric and not injected. Cornea within normal limits. Periorbital areas with no swelling, redness, or edema. ENT: Nares patent. No nasal discharge, no septal abnormalities noted. Tympanic membranes are normal and external auditory canals are clear. Oropharynx with no redness, swelling, or masses, exudates, or evidence of obstruction, uvula midline. Mucous membranes moist. Neck: Trachea midline, no thyromegaly or masses palpated, and no cervical lymphadenopathy. Supple, full range of motion without nuchal rigidity, or vertebral point tenderness. No Meningismus. Chest/axilla: Normal chest wall appearance and motion. Nontender with no deformity. No lesions are appreciated. Cardiovascular: Regular rate and rhythm with a normal S1 and S2. No gallops, murmurs, or rubs. Normal PMI, no JVD. No pulse deficits. Respiratory: Lungs have equal breath sounds bilaterally, clear to auscultation and percussion. No rales, rhonchi or wheezes noted. No increased work of breathing, no retractions or nasal flaring. Back: No spinal tenderness. No costovertebral tenderness. Full range of motion. Skin: Warm, dry with normal turgor. Normal color with no rashes, no lesions, and no evidence of cellulitis. MS/ Extremity: Pulses equal, no cyanosis. Neurovascular intact. Full, normal range of motion. Neuro: Awake and alert, GCS 15, oriented to person, place, time, and situation. Cranial nerves II-XII grossly intact. Motor strength 5/5 in all extremities. Sensory grossly intact. Cerebellar exam normal. Normal gait. Psych: Awake, alert, with orientation to person, place and time. Behavior, mood, and affect are within normal limits. 15:46 Constitutional: The patient appears anxious, restless, uncomfortable. 15:46 Abdomen/GI: Inspection: distension, that is moderate, in the suprapubic area, Bowel sounds: normal, Palpation: moderate abdominal tenderness, in the right lower quadrant and left lower quadrant. Vital Signs: 15:29 Resp 20; Temp 98.8; Pulse Ox 98% on R/A; Weight 97.52 kg; Height 6 ft. 1 in. (185.42 la1 cm); Pain 10/10; 17:01 BP 131 / 87; Pulse 87; Resp 16; Temp 98.9(TE); Pulse Ox 99% on R/A; mh5 18:00 BP 145 / 92; Pulse 90; Resp 16; Pulse Ox 99% ; bp 15:29 Body Mass Index 28.37 (97.52 kg, 185.42 cm) la1 MDM: 15:45 Patient medically screened. snw 18:35 Data reviewed: vital signs, nurses notes. Data interpreted: Pulse oximetry: on room air snw is 99 %. Interpretation: normal. Counseling: I had a detailed discussion with the patient and/or guardian regarding: the historical points, exam findings, and any diagnostic results supporting the discharge/admit diagnosis, the presence of at least one elevated blood pressure reading (>120/80) during this emergency department visit, lab results, the need for outpatient follow up, to return to the emergency department if symptoms worsen or persist or if there are any questions or concerns that arise at home. Response to treatment: the patient's symptoms have markedly improved after treatment. Special discussion: I have referred the patient to see his PCP for further evaluation of high blood pressure. Based on the history and exam findings, there is no indication for further emergent testing or inpatient evaluation. I discussed with the patient/guardian the need to see the urologist for further evaluation of the symptoms. 12/03 15:48 Order name: Urine Culture snw 12/03 15:48 Order name: Urine Microscopic Only; Complete Time: 17:20 snw 12/03 15:33 Order name: [place]; Complete Time: 16:45 snw 12/03 15:33 Order name: Bladder Scanner; Complete Time: 16:45 snw 12/03 15:48 Order name: Urine Dipstick-Ancillary (obtain specimen); Complete Time: 16:45 snw 12/03 16:34 Order name: Urine Dipstick--Ancillary (enter results) bd Administered Medications: No medications were administered Disposition: 12/03/18 18:28 Discharged to Home. Impression: Retention of urine. - Condition is Stable. - Discharge Instructions: [place] Catheter Care, Adult, Acute Urinary Retention, Male, Rehydration, Adult. - Medication Reconciliation Form, Thank You Letter, Antibiotic Education, Prescription Opioid Use form. - Follow up: Private Physician; When: Tomorrow; Reason: Recheck today's complaints, Continuance of care, Re-evaluation by your physician. Follow up: Emergency Department; When: As needed; Reason: Worsening of condition. Addendum: 12/05/2018 01:56 Co-signature as Attending Physician, Jignesh Lazaro MD. g s Signatures: Dispatcher [employer] EDBeverley Fair, MELVA-C TUNNEL HEADING INSPECTOR-Ryanw Satnam Garcia, RN RN la1 Jignesh Lazaro MD MD David Castañeda, RN RN bp Corrections: (The following items were deleted from the chart) 12/03 18:49 18:28 12/03/2018 18:28 Discharged to Home. Impression: Retention of urine. Condition is bp Stable. Forms are Medication Reconciliation Form, Thank You Letter, Antibiotic Education, Prescription Opioid Use. Follow up: Private Physician; When: Tomorrow; Reason: Recheck today's complaints, Continuance of care, Re-evaluation by your physician. Follow up: Emergency Department; When: As needed; Reason: Worsening of condition. snw
[2018-12-03 20:22] LABS: Urine Blood 3+ (NEG); Urine Glucose TRACE (NEG); Urine Protein 1+ (NEG); Urine Specific Gravity 1.015 (1.005-1.030)
== END 2018-12-03 18:49 | disposition home or self-care (01) ==
LOC: ER 15:24
DX: R33.9 Retention of urine, unspecified (principal); Z85.46 Personal history of malignant neoplasm of prostate; Z85.51 Personal history of malignant neoplasm of bladder
CPT/HCPCS: 51702; 81003; 81015; 87086; 87088; 99284

== ENCOUNTER 2018-12-31 14:11 | Emergency (ER) | payer OTHER ==
--- OUTSIDE RECORDS SUMMARY | 2018-12-31 14:14 | XMS REPORT | Continuity of Care Document ---
:1965 Author Organization [email or web address] Care Team Providers Name Role Phone [email or web address] Unavailable Unavailable Problems Problem Status Onset Classification Date Comments Source Date Reported PROSTATE CANCER Active 06/01/[address] Bone fracture Resolved Problem 10/17/2016 [facility] [place] High cholesterol Resolved Problem 10/17/2016 [facility], [facility] [place] Hypertension Resolved Problem 10/17/2016 [facility], [facility] [place] HTN (Confirmed) Active Problem 10/17/2016 [facility] [place] Prostate cancer Active Problem 10/17/2016 [facility], [facility] Ja[place] PC (Confirmed) Active Problem 10/17/2016 [facility], [facility] [place] BPH (Confirmed) Resolved Problem 10/17/2016 [facility] [place] Elevated PSA Resolved Problem 10/17/2016 [facility] [place] Type 2 diabetes Active Problem 10/17/2016 [facility] mellitus with [facility] diabetic chronic [place], kidney disease JAMIED [place] Urinary Active Problem 10/17/2016 OP[facility] incontinence, [place] mixed MALIGNANT Active [facility] NEOPLASM OF [facility] PROSTATE [place] Medications Medication Details Route Status Patient Ordering Order Source Instructions Provider Date Lipitor 10 mg, 1 tab, No Longer [facility] Route: PO, Drug Active 2016 Medical form: TAB, Center Daily, Dosing Weight 92.813, kg, Start date: 07/07/16 9:00:00 [employer], Duration: 30 day, Stop date: 08/05/16 9:00:00 CSTNotes: (Same As: Lipitor) Amlodipine 10 mg, 1 tab, No Longer [facility] Route: PO, Drug Active 2016 Medical form: TAB, Center Daily, Dosing Weight 92.813, kg, Start date: 07/07/16 9:00:00 [employer], Duration: 30 day, Stop date: 08/05/16 9:00:00 CSTNotes: (Same as: Norvasc) ceFAZolin 1 gm, Route: Inactive [place] (SCIP) IVPB, Drug form: 2017 Medical PDR/INJ, Q8H, Center Dosing Weight 93.182, kg, Start date: 07/06/16 21:00:00 [employer], Duration: 1 doses or times, Stop date: 07/06/16 21:00:00 CSTNotes: (Same As: Ancef Kefzol) MEDICATION WASTE Product Size: 1000 mg Product Wasted: _0__ mg Metformin 500 mg, 1 tab, Inactive [place] hydrochloride Route: PO, Drug 2017 Medical 500 MG Oral form: TAB, Center Tablet BID-Meals, Dosing Weight 92.813, kg, Start date: 07/06/16 17:00:00 [employer], Duration: 30 day, Stop date: 08/05/16 8:00:00 CSTNotes: (Same as: Glucophage) Take with meal Docusate Sodium 100 mg, 1 cap, Inactive [place] 100 MG Oral Route: PO, Drug 2016 Medical Capsule form: CAP, BID, Center [Colace] Dosing Weight 92.813, kg, Start date: 07/06/16 17:00:00 [employer], Duration: 30 day, Stop date: 08/05/16 9:00:00 [employer] Lisinopril 20 mg, 1 tab, Inactive [place] Route: PO, Drug 2016 Medical form: TAB, Center Daily, Dosing Weight 92.813, kg, Start date: 07/06/16 13:30:00 [employer], Duration: 30 day, Stop date: 08/05/16 9:00:00 CSTNotes: (Same as: Prinivil, Zestril) Doxepin 10 mg, 1 cap, Inactive [place] Route: PO, Drug 2016 Medical form: CAP, TID, Center Dosing Weight 92.813, kg, Start date: 07/06/16 13:00:00 [employer], Duration: 30 day, Stop date: 08/05/16 9:00:00 CSTNotes: (Same as: SINEquan) Famotidine 20 mg, 1 tab, No Longer [place] Route: PO, Drug Active 2017 Medical form: TAB, Q12H, Center Dosing Weight 93.182, kg, Start date: 07/05/16 21:00:00 [employer], Duration: 30 day, Stop date: 08/04/16 9:00:00 CSTNotes: (Same as: Pepcid) Ketorolac 15 mg, 1 mL, No Longer [place] Route: IVP, Drug Active 2016 Medical form: INJ, Q6H, Center Dosing Weight 93.182, kg, Start date: 07/05/16 18:00:00 [employer], Duration: 6 doses or times, Stop date: 07/07/16 0:00:00 CSTNotes: (Same as:Toradol) IV bolus must be given >15 seconds. Give IM administration slowly and deeply into the muscle. Not for use > 4 days. Docusate Sodium 100 mg, 1 cap, No Longer [place] 100 MG Oral Route: PO, Drug Active 2016 Medical Capsule form: CAP, BID, Center Dosing Weight 93.182, kg, Start date: 07/05/16 17:00:00 [employer], Duration: 30 day, Stop date: 08/04/16 9:00:00 CSTNotes: (Same as: Colace) (Do Not Crush) Bacitracin 0.5 1 appl, Route: No Longer [place] UNT/MG / TOP, QID, Drug Active 2016 Medical Polymyxin B 10 form: OINT, PRN [place] UNT/MG Topical Other -See Ointment Comment, Start date: 07/05/16 16:02:00 [employer], Duration: 30 day, Stop date: 08/04/16 16:01:00 [employer], Substitute Allowed: Always, urethral meatus at [place] - lubircationNotes : (Same As: Polysporin) ceFAZolin 1 gm, Route: Inactive [place] (SCIP) IVPB, Drug form: 2016 Medical PDR/INJ, Q8H, Center Dosing Weight 93.182, kg, Start date: 07/05/16 16:00:00 [employer], Duration: 1 doses or times, Stop date: 07/05/16 16:00:00 CSTNotes: (Same As: Ancef, Kefzol) MEDICATION WASTE Product Size: 1000 mg Product Wasted: _0__ mg zolpidem 5 mg, 1 tab, No Longer [place] Route: PO, Drug Active 2016 Medical form: TAB, Center Bedtime, Dosing Weight 93.182, kg, PRN Insomnia, Start date: 07/05/16 15:59:00 [employer], Duration: 30 day, Stop date: 08/04/16 15:58:00 CSTNotes: (Same As: Alyssa) Ondansetron 4 mg, 2 mL, No Longer [place] Route: IVP, Drug Active 2016 Medical form: INJ, Q6H, Center Dosing Weight 93.182, kg, PRN Nausea & Vomiting, Start date: 07/05/16 15:59:00 [employer], Duration: 30 day, Stop date: 08/04/16 15:58:00 CSTNotes: (Same as: Zofran) MEDICATION WASTE Product Size: 4 mg Product Wasted: ___ mg Dulcolax 5 mg, 1 tab, No Longer [place] Laxative Route: PO, Drug Active 2016 Medical form: ECTAB, Center Q24H, Dosing Weight 93.182, kg, PRN Constipation, Start date: 07/05/16 15:59:00 [employer], Duration: 30 day, Stop date: 08/04/16 15:58:00 CSTNotes: (Same As: Dulcolax, Correctol) (Do Not Crush) "Do Not Crush" Morphine 2 mg, 1 mL, No Longer [place] Route: IVP, Drug Active 2016 Medical form: INJ, Q3H, Center Dosing Weight 93.182, kg, PRN Pain Score 1-3, Start date: 07/05/16 15:59:00 [employer], Duration: 30 day, Stop date: 08/04/16 15:58:00 CSTNotes: (Same as:MORPhine Sulfate) Acetaminophen 1 tab, Route: No Longer [place] 325 MG / PO, Drug Form: Active 2017 Medical Hydrocodone TAB, Dosing Center Bitartrate 5 MG Weight 93.182, Oral Tablet kg, Q4H, PRN Pain Score 4-6, Start date: 07/05/16 15:59:00 [employer], Duration: 30 day, Stop date: 08/04/16 15:58:00 CSTNotes: (Same as: Boaz 325/5) Do not exceed 4gm/day of acetaminophen. Calcium 1,000 mL, Rate: No Longer [place] Chloride 0.0014 125 ml/hr, Active 2016 Medical MEQ/ML / Infuse over: 8 Center Potassium hr, Route: IV, Chloride 0.004 Dosing Weight MEQ/ML / Sodium 93.182 kg, Total Chloride 0.103 Volume: 1,000, MEQ/ML / Sodium Start date: Lactate 0.028 07/05/16 MEQ/ML 15:59:00 [employer], Injectable Duration: 30 Solution day, Stop date: 08/04/16 15:58:00 [employer] Ondansetron 4 mg, 2 mL, Inactive [place] Route: IVP, Drug 2016 Medical form: INJ, ONCE, Center Dosing Weight 93.182, kg, PRN Nausea & Vomiting, Start date: 07/05/16 12:07:00 CSTNotes: (Same as: [place]) MEDICATION WASTE Product Size: 4 mg Product Wasted: ___ mg Hydralazine 10 mg, 0.5 mL, Inactive [place] Route: IVP, Drug 2016 Medical form: INJ, Center Q20Min, Dosing Weight 93.182, kg, PRN Elevated BP, Start date: 07/05/16 12:07:00 [employer], Duration: 2 doses or times, Stop date: 07/06/16 0:00:00 CSTNotes: (Same as: Apresoline) Push over 5 minutes Labetalol 10 mg, 2 mL, Inactive [facility] Route: IVP, Drug 2016 Medical form: INJ, Center Q5Min, Dosing Weight 93.182, kg, PRN Elevated BP, Start date: 07/05/16 12:07:00 [employer], Duration: 5 doses or times, Stop date: 07/06/16 0:00:00 [employer] Hydromorphone 0.5 mg, 0.25 mL, Inactive [facility] Route: IVP, Drug 2016 Medical form: INJ, Center Q5Min, Dosing Weight 93.182, kg, PRN Pain Score 7-10, Start date: 07/05/16 12:07:00 [employer], Duration: 4 doses or times, Stop date: 07/06/16 0:00:00 CSTNotes: Same as Dilaudid Morphine 2 mg, 0.5 mL, Inactive [place] Route: IVP, Drug 2016 Medical form: SOLN, Center Q5Min, Dosing Weight 93.182, kg, PRN Pain Score 4-6, Start date: 07/05/16 12:07:00 [employer], Duration: 5 doses or times, Stop date: 07/06/16 0:00:00 CSTNotes: (Same as:MORPhine Sulfate) Naloxone 0.4 mg, 1 mL, Inactive [place] Route: IVP, Drug 2016 Medical form: INJ, Center Q2MIN, Dosing Weight 93.182, kg, PRN Narcotic Reversal, Start date: 07/05/16 12:07:00 [employer], Duration: 8 doses or times, Stop date: 07/06/16 0:00:00 CSTNotes: Same as Narcan Flumazenil 0.2 mg, 2 mL, Inactive [place] Route: IVP, Drug 2016 Medical form: INJ, PRN, Center Dosing Weight 93.182, kg, PRN Benzodiazepine Reversal, Initial dose, Start date: 07/05/16 12:07:00 [employer], Duration: 30 day, Stop date: 08/04/16 12:06:00 CSTNotes: (Same as: Romazicon) ceFAZolin 2 gm, 100 mL, No Longer [place] Route: IVPB, Active 2016 Medical Drug form: INJ, Center PRE OP, Start date: 07/04/16 23:00:00 [employer], Duration: 1 day, Stop date: 07/05/16 22:59:00 [...] [place] oral capsule TID, 0 Refill(s) 2015 [facility] atorvastatin 10 10 mg=1 tab, PO, Active [place] MG Oral Tablet Daily, 0 2015 [facility] [Lipitor] Refill(s) [place] Allergies, Adverse Reactions, Alerts No Known Medication Allergies Immunizations No Data Provided for This Section Results Order Name Results Value Reference Date Interpretation Comments Source Range CHEM PANEL eGFR 62 07/05 Result Comment: The Medical eGFR is Center calculated using the CKD-EPI formula. In most young, healthy individuals the eGFR will be >90 mL/min/1.73m2 . The eGFR declines with age. An eGFR of 60-89 may be normal in some populations, particularly the elderly, for whom the CKD-EPI formula has not been extensively validated. Use of the eGFR is not recommended in the following populations:< br/>
Shirley viduals with unstable creatinine concentration s, including patients and those with serious co-morbid conditions.<b r/>
Patie nts with extremes in muscle mass or diet.

The data above are obtained from the National Kidney Disease Education Program (NKDEP) which additionally recommends that when the eGFR is used in patients with extremes of body mass index for purposes of drug dosing, the eGFR should be multiplied by the estimated BMI. CHEM PANEL Alk Phos 75 39 - 136 07/[address] CHEM PANEL AST 14 0 - 37 07/[address] CHEM PANEL Bili Total 0.6 0.2 - 1.3 07/[address] CHEM PANEL ALT 22 0 - 65 07/[address] CHEM PANEL Chloride Lvl 102 95 - 109 07/[address] CHEM PANEL CO2 25 24 - 32 07/[address] CHEM PANEL Creatinine 1.31 0.50 - 07/05 [facility] Lvl 1.40 [facility] CHEM PANEL Calcium Lvl 8.8 8.5 - 10.5 07/[address] CHEM PANEL Potassium Lvl 4.6 3.5 - 5.1 07/[address] CHEM PANEL Sodium Lvl 136 135 - 145 07/[address] CHEM PANEL Albumin Lvl 3.8 3.5 - 5.0 07/[address] CHEM PANEL Total Protein 7.1 6.4 - 8.4 07/05 [facility] CHEM PANEL BUN 14 7 - 22 07/05 [facility] CHEM PANEL Glucose Lvl 161 70 - 99 07/05 2016 [facility] CHEM PANEL A/G Ratio 1.2 0.7 - 1.6 07/05 [facility] CHEM PANEL B/C Ratio 11 6 - 25 07/05 [facility] CHEM PANEL AGAP 13.6 10.0 - 07/05 [place] 20.0 [facility] CHEM PANEL Globulin 3.3 2.7 - 4.2 07/05 [facility] HEMATOLOGY RBC 4.21 4.70 - 07/05 [place] 6.10 [facility] HEMATOLOGY Hgb 13.5 14.0 - 07/05 [place] 18.0 [facility] HEMATOLOGY WBC 13.3 3.7 - 10.4 07/05 [facility] HEMATOLOGY Hct 40.2 42.0 - 07/05 [place] 54.0 [facility] HEMATOLOGY MCV 95.3 80.0 - 07/05 [place] 94.0 [facility] HEMATOLOGY MPV 7.7 7.4 - 10.4 07/05 [facility] HEMATOLOGY RDW 12.6 11.5 - 07/05 [place] 14.5 [facility] HEMATOLOGY Platelet 250 133 - 450 07/05 2016 [facility] HEMATOLOGY MCH 31.9 27.0 - 07/05 [place] 31.0 [facility] HEMATOLOGY MCHC 33.5 32.0 - 07/05 [place] 36.0 [facility] HEMATOLOGY Lymphocytes 3.3 20.0 - 07/05 [place] 40.0 2017 [facility] HEMATOLOGY Segs 95.7 45.0 - 07/05 [place] 75.0 2017 [facility] HEMATOLOGY Lymphocytes # 0.4 1.0 - 5.5 07/05 [facility] HEMATOLOGY Segs-Bands # 12.7 1.5 - 8.1 07/05 [facility] HEMATOLOGY Basophils 0.1 0.0 - 1.0 07/05 [facility] HEMATOLOGY Monocytes 0.9 2.0 - 12.0 07/05 [facility] HEMATOLOGY Monocytes # 0.1 0.0 - 0.8 07/05 [facility] PARATHYROID Ca Norm WB 1.10 1.05 - 07/05 [facility] PROFILE 1. [facility] PARATHYROID Ca Ion WB 1.14 . - 07/05 [facility] PROFILE . [facility] BLOOD BANK Antibody Scrn Negative 07/05 [facility] RESULTS (07/05/16 11:07 AM) [facility] BLOOD BANK ABO/Rh O POS 07/05 [place] RESULTS /2016 [facility] CHEM PANEL eGFR 68 07/02 Result Comment: The [facility] eGFR is Center calculated using the CKD-EPI formula. In most young, healthy individuals the eGFR will be >90 mL/min/1.73m2 . The eGFR declines with age. An eGFR of 60-89 may be normal in some populations, particularly the elderly, for whom the CKD-EPI formula has not been extensively validated. Use of the eGFR is not recommended in the following populations:< br/>
Shirley viduals with unstable creatinine concentration s, including patients and those with serious co-morbid conditions.<b r/>
Patie nts with extremes in muscle mass or diet.

The data above are obtained from the National Kidney Disease Education Program (NKDEP) which additionally recommends that when the eGFR is used in patients with extremes of body mass index for purposes of drug dosing, the eGFR should be multiplied by the estimated BMI. CHEM PANEL Potassium Lvl 4.6 3.5 - 5.1 07/02 [facility] CHEM PANEL Sodium Lvl 141 135 - 145 07/02 [facility] CHEM PANEL Creatinine 1.21 0.50 - 07/02 [facility] Lvl 1.40 [facility] CHEM PANEL BUN 18 7 - 22 07/02 2016 [facility] CHEM PANEL Glucose Lvl 104 70 - 99 07/02 [facility]2016 [facility] CHEM PANEL Calcium Lvl 10.1 8.5 - 10.5 07/02 [facility] CHEM PANEL CO2 28 24 - 32 07/02 [facility] CHEM PANEL Chloride Lvl 103 95 - 109 07/02 [facility] CHEM PANEL AGAP 14.6 10.0 - 07/02 [facility] 20.0 [facility] HEMATOLOGY TEG Data See Note 07/02 [facility] (07/02/16 4:30 PM) [facility] HEMATOLOGY Coag Index 2.6 -3.0-3.0 - 07/02 [place] 3.0 [facility] HEMATOLOGY Max Amp 65.9 50.0 - 07/02 [place] 70.0 [facility] HEMATOLOGY G-value 9.7 4.5 - 11.0 07/[address] HEMATOLOGY Angle 70.3 53.0 - 07/02 [place] 72.0 [facility] HEMATOLOGY Ly30 0.0 0.0 - 7.5 07/[address] HEMATOLOGY K-time 1.3 1.0 - 3.0 07/[address] [place] [address] HEMATOLOGY R-time 3.9 5.0 - 10.0 07/[address] HEMATOLOGY Basophils # 0.1 0.0 - 0.2 07/02 [facility] [address] [place] [address] HEMATOLOGY Monocytes # 0.5 0.0 - 0.8 07/02 [facility] [address] [place] [address] HEMATOLOGY Lymphocytes # 1.5 1.0 - 5.5 07/[address] [place] [address] HEMATOLOGY Segs-Bands # 6.0 1.5 - 8.1 07/02 [facility] [address] [place] [address] HEMATOLOGY Basophils 0.7 0.0 - 1.0 07/[address] [place] [address] HEMATOLOGY Eosinophils 0.3 0.0 - 4.0 07/02 [facility] [address] [place] [address] HEMATOLOGY Lymphocytes 18.8 20.0 - 07/02 [place] 40.0 [facility] HEMATOLOGY Monocytes 6.0 2.0 - 12.0 07/02 [facility] HEMATOLOGY Segs 74.2 45.0 - 07/02 [place] 75.0 [facility] HEMATOLOGY INR 1.00 0.85 - 07/02 [place] 1.17 [facility] HEMATOLOGY PTT 30.4 22.9 - 07/02 [place] 35.8 [facility] HEMATOLOGY PT 13.4 12.0 - 07/02 [place] 14.7 [facility] HEMATOLOGY D-Dimer 0.27 07/[address] HEMATOLOGY RBC 4.42 4.70 - 07/02 [place] 6.10 [facility] HEMATOLOGY MCV 96.0 80.0 - 07/02 [place] 94.0 [facility] HEMATOLOGY Hgb 14.6 14.0 - 07/02 [place] 18.0 /2016 [facility] HEMATOLOGY Hct 42.4 42.0 - 07/02 [place] 54.0 /2016 [facility] HEMATOLOGY WBC 8.1 3.7 - 10.4 07/02 [facility] HEMATOLOGY MCH 33.0 27.0 - 07/02 [place] 31.0 /2016 [facility] HEMATOLOGY MCHC 34.4 32.0 - 07/02 [place] 36.0 /2016 [facility] HEMATOLOGY RDW 12.5 11.5 - 07/02 [place] 14.5 /2016 [facility] HEMATOLOGY Platelet 254 133 - 450 07/02 [facility] HEMATOLOGY MPV 7.7 7.4 - 10.4 07/02 [facility] SPECIAL Hgb A1C 6.0 <=5.6 % 07/02 [facility] CHEMISTRY [facility] URINE AND UA 0.2 0.1 - 1.0 07/02 [facility] STOOL Urobilinogen /2016 [facility] URINE AND UA Sq Epi RARE 07/02 [facility] URINE AND UA Blood Trace Negative 07/02 [facility] STOOL *ABN* /2016 [facility] (07/02/16 4:30 PM) [place] URINE AND UA Mucus Few /LPF None Seen 07/02 [facility] STOOL /LPF /2016 [facility] URINE AND UA RBC 15 0 - 2 07/02 [facility] [address] [place] [address] URINE AND UA WBC 1 0 - 5 07/02 [facility] [address] [place] [address] URINE AND UA Leuk Est Negative Negative 07/02 [facility] (07/02/16 4:30 PM) /2016 [facility] URINE AND UA Nitrite Negative Negative 07/02 [facility] (07/02/16 4:30 PM) /2016 [facility] URINE AND UA Bili Negative Negative 07/02 [facility] STOOL *NA* /2016 [facility] (07/02/16 4:30 PM) Center URINE AND UA Glucose Negative Negative 07/02 [facility] STOOL mg/dL mg/dL [facility] URINE AND UA pH 6.0 5.0 - 8.0 07/02 [facility] [address] [place] [address] URINE AND UA Ketones Negative Negative 07/02 [facility] STOOL mg/dL mg/dL /2016 [facility] URINE AND UA Protein Negative Negative 07/02 [facility] mg/dL mg/dL [facility] URINE AND UA Spec Grav 1.018 <=1.030 07/02 [facility] STOOL [facility] URINE AND UA Turbidity Clear Clear 07/02 [facility] STOOL (07/02/16 4:30 PM) [facility] URINE AND UA Color Yellow Yellow 07/02 [facility] STOOL *NA* Medical (07/02/16 4:30 PM) Center CHEM PANEL eGFR 97 06/25 Result [facility] Comment: The [facility] eGFR is Center calculated using the CKD-EPI formula. In most young, healthy individuals the eGFR will be >90 mL/min/1.73m2 . The eGFR declines with age. An eGFR of 60-89 may be normal in some populations, particularly the elderly, for whom the CKD-EPI formula has not been extensively validated. Use of the eGFR is not recommended in the following populations:< br/>
Shirley viduals with unstable creatinine concentration s, including patients and those with serious co-morbid conditions.<b r/>
Patie nts with extremes in muscle mass or diet.

The data above are obtained from the National Kidney Disease Education Program (NKDEP) which additionally recommends that when the eGFR is used in patients with extremes of body mass index for purposes of drug dosing, the eGFR should be multiplied by the estimated BMI. CHEM PANEL POC 0.9 0.5 - 1.4 06/25 [facility] Creatinine /2016 [facility] Pathology Reports No Data Provided for This Section Diagnostic Reports Report Value Date Source Bone / joint SPECT NM EXAM: NM Bone Joint Imaging Whole Body and SPECT 2016 [facility] [place] DATE: 10/14/2016 3:51 PM CDT INDICATION: Prostate cancer, restaging. COMPARISON: None TECHNIQUE: [...] No evidence of bony metastases. Bone scan NM EXAM: [place] Bone Joint Imaging Whole Body and SPECT 10/14/2016 [facility] [place] DATE: 10/14/2016 3:51 PM CDT INDICATION: Prostate cancer, restaging. COMPARISON: None TECHNIQUE: [...] physiologic. IMPRESSION: No evidence of bony metastases. Abdomen/Pelvis w/wo IV EXAM: CT ABDOMEN AND PELVIS WITHOUT AND WITH CONTRAST 10/14/2016 [facility] contrast CT DATE: 10/14/2016 11:46 AM CDT INDICATION: C61 Malignant neoplasm of prostate - [...] the left internal iliac chain on series 3, image 68. Vasculature: Atherosclerotic calcifications. Bones: Normal. Soft tissues: Normal. IMPRESSION: 1. A 9 mm left internal iliac chain lymph node. RECOMMENDATIONS: None. Cystogram DX EXAM: FLUOROSCOPIC CYSTOGRAM 07/19/2016 [facility] [place] DATE: 07/19/2016 10:00 AM [employer] INDICATION: Tube placement/removal/reposition ADDITIONAL INFORMATION: Prostate CA [...] office at the time of dictation. Cystogram DX EXAM: FLUOROSCOPIC CYSTOGRAM 07/12/2016 [facility] [place] DATE: 07/12/2016 11:02 AM [employer]ER INDICATION: Tube placement/removal/reposition/C61 Malignant neoplasm of prostate [...] 1. Contrast extravasation at the vesicourethral anastomosis. Pelvis w/wo contrast EXAM: MR PELVIS WITH AND WITHOUT CONTRAST 06/25/[address] [facility] MRI DATE: 06/25/2016 2:00 PM [employer]AL [employer] BLOCK[employer] Center INDICATION: Prostate Cancer ADDITIONAL INFORMATION: Prostate-specific antigen 20.3 on 03/2016. Prostate biopsy on 04/16/2016 demonstrates adenocarcinoma in all cores ranging from Kalee 7 to Kalee 9. On casodex. COMPARISON: None. TECHNIQUE: TECHNIQUE: [...] lymph nodes, highly suspicious for metastatic disease. Consultation Notes No Data Provided for This Section Discharge Summaries No Data Provided for This Section History and Physicals No Data Provided for This Section Vital Signs Vital Sign Value Date Comments Source Systolic (mm Hg) 151 07/06/2016 [facility] Diastolic (mm Hg) 94 07/06/2016 [facility] Respitory Rate 18 07/06/2016 [facility] Heart Rate 92 07/06/2016 [facility] Temperature Oral (F) 98.7 F 07/06/2016 [facility] Respitory Rate 18 07/06/2016 [facility] Systolic (mm Hg) 128 07/06/2016 [facility] Diastolic (mm Hg) 85 07/06/2016 [facility] [facility] [place] Temperature Oral (F) 98.1 F 07/06/2016 [facility] [place] Heart Rate 83 07/06/2016 [facility] [place] Heart Rate 99 07/06/2016 [facility] [place] Temperature Oral (F) 99.3 F 07/06/2016 [facility] [place] Systolic (mm Hg) 141 07/06/2016 [facility] [place] Diastolic (mm Hg) 94 07/06/2016 [facility] [place] Respitory Rate 18 07/06/2016 [facility] [place] Weight 92.813 07/05/2016 [facility] Height 185.42 cm 07/05/2016 [facility] [place] BMI Calculated 27 07/05/2016 [facility] [place] BMI Calculated 27.1 07/05/2016 [facility] [place] Height 185.42 cm 07/05/2016 [facility] [place] Weight 93.182 07/05/2016 [facility] [place] Weight 93.182 07/02/2016 [facility] [place] BMI Calculated 27.1 07/02/2016 [facility] [place] Height 185.42 cm 07/02/2016 [facility] [place] Encounters Location Location Encounter Encounter Reason Attending ADM DC Status Source Details Type Number For Provider Date Date Visit Outpatient [id number] RASHID 06/01 [facility] Outpatient [id number] Kailyn Rousseau 06/25 06/26 [facility] /2016 [facility] Outpatient [id number] RASHID 07/01 [facility] [place] Outpatient [id number] KAILYN ROUSSEAU 07/02 [facility] Inpatient [id number] Rashid 07/05 07/06 [facility] Outpatient [id number] KAILYN ROUSSEAU 07/12 [facility] Out[facility]ag [id number] Kailyn Rousseau 07/12 07/13 [facility]2016 [facility] Outpatient [id number] KAILYN ROUSSEAU 07/19 [facility] Outpt Diag [id number] Kailyn Rousseau 07/19 07/20 [facility]2016 [facility] [place] Outpatient [id number] RASHID 08/26 [facility] Outpt Diag [id number] Rashid 10/14 10/15 [facility] [id number] RASHID 10/21 [facility] [place] Outpatient [id number] KAILYN ROUSSEAU 04/29 [place] Procedures Procedure Code Date Perfomer [place] [address] [facility] cystography or voiding 7 [facility] urethrocystography Prostatectomy 30415138 [facility] 7 [place] Prostatectomy [id number] [address] Assessment and Plan Assessment and Plan Date Source Extracted from:Title: Clinical Document 07/06/2016 [facility] [place] Author: Kailyn Rousseau PA-C Date: 07/06/16 Patient: Stevenson Espinosa 1965 MRN Date: 07/05/2016 OPERATIVE REPORT PRE-OPERATIVE DIAGNOSIS Carcinoma of the prostate, T1c POST-OPERATIVE DIAGNOSIS - Same PROCEDURE 1. Robotic-assisted laparoscopic radical prostatectomy, extra peritoneal approach 2. En bloc bladder neck resection with bladder neck reconstruction 3. >50% Nerve resection bilaterally 4. Robotic-assisted laparoscopic bilateral extended pelvic lymph node dissection 5. Robotic-assisted laparoscopic anterior and posterior reconstruction of the rhabdosphincter 1st SEED CLEANING MANAGER Kieran Crystal - LSA/ [facility] ANESTHESIA General endotracheal INDICATIONS Mr. Espinosa is a 51 year old male recently diagnosed with prostate cancer. He presented for a second opinion on treatment options for recently diagnosed prostate cancer. He was diagnosed by Dr. Torrez in [facility] on 04/16/[facility]. His PSA was 20.3, this was his first PSA. Biopsy of 12 systematic cores + SV biopsy (negative) showed 12/12 positive cores Kalee 7- 9. Max % cancer is 100% at LLA Kalee 4+4. Dr. Arce recommended surgery and began [...] was then closed as described below. 1st SEED CLEANING MANAGER ROLE IN THE PROCEDURE The 1st assistant oceanographer was positioned on the right hand side of the patient throughout the procedure and the surgeon was positioned on the left hand side during the initial phase of the operation, until the da Janessa robot slave was docked and the instruments inserted through the robotic trocars, after which the surgeon moved to the master console in order to operate the robotic arms. The primary assistant oceanographer to the surgeon inserted a 20Fr Huggins catheter within the sterile surgical field. The 1st assistant oceanographer assisted the surgeon during the incision, creation of the surgical space , placement of the trocars, both robotic and standard laparoscopic, and insertion of the camera and the surgical instruments. After the surgeon moved to the master console, the 1st assist ant remained at the patients right side, performing the following tasks during the procedure: readjustment of the robotic arms, insertion, removal and exchange of the robotic instruments, insert ion and removal of sutures, needles, and specimens, suction, retraction cutting of sutures, manipulating the Enseal Bishop device, etc. Near the end of the procedure, the 1st assistant oceanographer assisted the surgeo n in undocking the da Janessa robot slave, and closure of all incisions and trocar [...] were sterilely prep ped and draped. A 20-Bulgarian 2-way Huggins catheter was passed per urethra into the bladder and 15 cc placed in the balloon. 0.5% Marcaine with epinephrine was used for local anesthesia at all port sites . A 2-cm midline incision was made two fingersbreadth below the umbilicus and carried through Herbert's fascia. The anterior rectus fascia was divided in the midline as well, exposing the posterio r rectus fascia in the midline between the two rectus muscles. Blunt finger dissection was carried out between and below the rectus muscle belly on either side, developing the retropubic space of Retzi us. A 2-0 Prolene suture was used to secure the upper edge of the fascial incision and tagged with a rubber-shod clamp. A kidney-shaped hernia dissecting balloon was passed under direct vision into th is space and the balloon inflated to further extend the space of Retzius. A 12 -mm extraperitoneal balloon port was then placed into this space and the balloon inflated with 30 cc of air. The space of Retzius was then insufflated to a pressure of 13 mmHg. Robotic and non- robotic trocar positions were marked out on the abdomen with a felt-tipped pen and infiltrated with local anesthetic. The 0-degre e rigid laparoscope was used to inspect the space of Retzius and blunt dissection used to further deflect the peritoneum cephalad. The 8-mm left instrument-arm cannula was then inserted between the lef t anterior superior iliac spine and the camera port in the midclavicular line. In a similar fashion, the right instrument-arm cannula was also placed between the umbilicus and the anterior iliac spine along the midclavicular line. Care was taken to avoid injury to the inferior epigastric vessels. The fourth robotic trocar was placed just medial to the left anterior-superior iliac spine, and 2 addit ional One-Step ports, one 12 mm and one 5 mm, were then inserted, one placed proximal and medial to the right instrument-arm cannula to facilitate delivery of sutures and removal of needles and one in t he midline retirement between the umbilicus and the pubis. These [...] and secured to the 12-mm cannula, and th e 0-degree lens was inserted. The 3 robotic arms were then docked into position as well. On the left side, a Pro-Grasp forceps was passed through the far-left robotic port, and a Fenestrated bipolar w as passed through the more medial second left robotic port. On the right side the "hot" pablo was passed through the right robotic trocar. Next, fat overlying the anterior prostate was swep t cephalad and laterally, facilitating the definition of the prostatovesical junction. The superficial vein of Santorini was coagulated and divided. The endopelvic fascia was then incised on its line of reflection on both the right and left sides, allowing gentle blunt dissection of the levator ani muscles laterally. The puboprostatic ligaments were divided as well with the "hot" pablo c lose to the prostate on the right and left sides. Next, the dorsal vein complex was ligated with #0 Vicryl zdltid-[id number]-haqjy sutures on a CT-1 needle at the level of the mid prostate. An additional #0 V icryl sutures on CT-1 needles were placed at the bladder neck just proximal to the prostatovesical junction both to facilitate hemostasis and to serve as a "handle" for the anterior bladder wa ll. The lens was then changed to the 30-degree "down" view. Next, the plane between the prostate and the bladder neck was identified laterally and the boundary further developed by dissectio n with the "hot" pablo, followed by the Weck clips placed laterally on the pedicles to the bladder, before dividing them with the hot pablo, avoiding injury to the neurovascular bundles. Th is was continued until the anterior bladder was opened in a 180-degree fashion , and the Huggins catheter was visualized inside the bladder and its balloon deflated. The Huggins catheter was grasped with a bowel grasper passed through the 5 mm port and pulled anteriorly to help elevate the prostate and to provided counter traction. The dissection was continued through the posterior wall of the bladder, e ncompassing the entire bladder neck up to the level of the uretreal orifices, until the seminal vesicles and vas deferentia were identified. These were dissected free on both the right and left sides a nd the vas deferens divided bilaterally as well. The prostate pedicles were then dissected and clipped using Weck clips on both the right and left sides, further dropping and releasing them posteriorly , avoiding the use of cautery to protect them. Dissection was carried forth in an antegrade fashion, until the prostate was completely mobilized to the apex. Right prostate pedicle sample was sent for frozen specimen and the area was tagged with 10 mm metal permanent clips x3. Next, using the cold scissors, lateral pelvic fascia overlying the neurovascular bundles were released and the bundles furth er swept off of the prostate in a [...] the anterior aspect, leaving the posterior urethra intact . A 5-0 prolene suture on an RB-1 needs was then passed through the posterior urethra and secured with a Laparotie, to be used as a handle during the anastomosis. The remainder of the posterior urethr a was than divided, and the posterior portion of the rhabodsphincter was mobilized and divided from the prostatic apex as well. The remainder of the NVB dissection was then completed and Weck clips use d to ligate the remaining portions of the prostate pedicles bilaterally, before dividing them and freeing the specimen. The specimen was placed in an Endobag, the robotic camera port was undocked and t he trocar deflated and removed. The specimen was delivered through this midline incision before resetting the camera port and re-docking the robot with the 30 degree lens replaced through the camera po rt. There was minimal bleeding noted and both neurovascular bundles appeared intact. An extended bilateral pelvic lymph node dissection was then performed , removing all nodes in the iliac, hypogastri c and obturator regions, which were then sent to pathology for permanent section. The bladder neck, was reconstructed using a running 3-0 Vicryl suture. Next, the posterior rhabdosphincter was identif ied and a 3-0 V-Loc suture on a V-20 tapered needle was secured to the proximal cut edge of Denonvillers fascia and the edge of the peritoneum of the Pouch of Star. These sutures were then pas sed 2 cm proximal to the reconstructed bladder neck and tied, bringing the bladder neck in close proximity to the urethra and re-creating the proper angle of the rhabdosphincter and extending the length of the rhabdosphincter, with the urethral stump buried within its muscular tube. Evaseal was sprayed throughout the pelvic area, and along the NVBs for hemostasis and prevention of lymphocele. Next, the anastomosis was then completed using the Van Veltoven technique, first by passing a double-armed interlocked V-Loc suture of #3-0 Monocryl suture on RB-1 needles, each arm 7 inches long and tied to each other into the retropubic space. The posterior lip of the bladder was sutured in a running fashion to the posterior urethra, which was pulled into view using the prior placed 5-0 prolene silva ndle and using perineal pressure, in a counter-clockwise fashion using the undyed arm of the suture. A large knot tied between the 2 arms of the suture allowed tightening of the posterior anasto mosis without tying any further knots. A transition stitch from inside to outside on the left lateral wall of the bladder at the 4 o'clock position was placed and then passed to the ProGrasp to ho ld the suture. The Huggins catheter was then passed into the bladder. The dyed portion of the suture was then used to sew the right lateral aspect of the anastomosis to the 12 o'clock position. Th e left side was then completed to the 12 o'clock position before tying these 2 arms to each other to complete the anastomosis. A final 3-0 Vicryl mattress suture was used to reapproximate the dis joe cut edge of the DVC fascia to the cut anterior edge of the bladder, and additional 3-0 Vicryl sutures were used to recreate the pubo-prostatic ligaments. The catheter was then filled with 120 cc of sterile water, and under direct vision the anastomosis was noted to be watertight. A Christian-Fox drain was passed through the right 10-mm port into the pelvis and secured with a nylon suture. The s kin was closed with subcutaneous #4-0 plain catgut sutures and #4-0 Vicryl for skin. Sterile dressings were applied. The patient tolerated the procedure well and left the operating room in stable condition. Rashid Lam M.D. Extracted from:Title: Clinical Document Author: Kailyn Rousseau PA-C Date: 07/06/16 Discharge Summary Admission Date: 07/05/16 Discharge Date: 07/06/16 Diagnoses: Prostate Cancer Procedures: Robotic Assisted Laproscopic Prostatectomy and Bilateral Pelvic Lymph Node Dissection Chief Complaint: Prostate Cancer Hospital course: The patient was recently diagnosed Prostate Cancer on by Dr. Arce. He presented to [facility] for a second opinion on treatment options. Biopsy revealed all 12/12 cores positive, Kalee 7-9. Patient was started on Casodex. A [...] draining well, yellow urine. Recent significant lab and radiology results: [facility] BUN: 14 mg/dL (07/05/16) [...] less in a 24 hour period. Extracted from:Title: Clinical Document Author: Kailyn Rousseau PA-C Date: 07/05/16 Attending: Rashid Lam MD Service: Urology Code status: None Specified=FULL CODE Reason for Admission: PROSTATE CANCER Working DRG: None Documented Isolation: None Documented Consulting Physicians: (none on file) HPI: He is a 51 year old patient here today for a second opinion on treatment options for recently diagnosed prostate cancer. He was diagnosed by Dr. Torrez in [place] on 04/16/16. His PSA was 20.3, this was his first PSA. Biopsy of 12 systematic cores + SV biopsy (negative) showed 12/ 12 positive cores kalee 7-9. Max % cancer is 100% at LLA Kalee 4+4. Patient would like to have surgery [...] High cholesterol PLAN: Prostate cancer: RALP w/BPLND Plan of Care No Data Provided for This Section Social History Social History Date Source Social History TypeResponse 07/05/2016 [facility] [place] Alcohol Current, Type Liquor. Frequency: Daily. Smoking Status Former smoker; Type: Cigarettes; Exposure to Tobacco Smoke None; Other Tobacco Frequency quit 3 years ago; Cigarette Smoking Last 365 Days No; Reg Smoking Cessation Counseling No Social History TypeResponse 07/05/2016 [facility] Alcohol Current, Type Liquor. Frequency: Daily. Smoking Status Former smoker; Type: Cigarettes; Exposure to Tobacco Smoke None; Other Tobacco Frequency quit 3 years ago; Cigarette Smoking Last 365 Days No; Reg Smoking Cessation Counseling No Family History No Data Provided for This Section Advance Directives No Data Provided for This Section Functional Status No Data Provided for This Section
--- NOTE | 2018-12-31 15:32 | ER ---
Nurse's Notes [facility] Name: Judit Espinosa Age: 53 yrs Sex: Male : 1965 Arrival Date: 12/31/2018 Time: 14:12 Bed 14 Private MD: Diagnosis: Retention of urine, unspecified Presentation: 12/31 14:16 Presenting complaint: Patient states: unable to void since this morning. Pt states "I aa5 had bladder surgery for cancer on November 27". Pt states "I was seen at the [facility] in [place] and they put another catheter in and took it out yesterday and I was able to pee all yesterday and last night". Transition of care: patient was not received from another setting of care. Onset of symptoms was December 31, 2018. Risk Assessment: Do you want to hurt yourself or someone else? Patient reports no desire to harm self or others. Initial Sepsis Screen: Does the patient meet any 2 criteria? No. Patient's initial sepsis screen is negative. Does the patient have a suspected source of infection? No. Patient's initial sepsis screen is negative. Care prior to arrival: None. 14:16 Acuity: VAIS 3 aa5 14:16 Method Of Arrival: Ambulatory aa5 Triage Assessment: 14:30 General: Appears uncomfortable, Behavior is calm, cooperative. rb1 Historical: - Allergies: 14:18 No Known Allergies; aa5 - PMHx: 14:18 bladder/prostate CA; aa5 - PSHx: 14:18 Prostatectomy; bladder sx for CA 11/27/18; aa5 - Immunization history:: Adult Immunizations up to date. - Ebola Screening: : No symptoms or risks identified at this time. - Family history:: not pertinent. - Social history:: Smoking status: Patient/guardian denies using tobacco. - Hospitalizations: : No recent hospitalization is reported. Screenin:30 Abuse screen: Denies threats or abuse. Nutritional screening: No deficits noted. rb1 Tuberculosis screening: No symptoms or risk factors identified. Fall Risk None identified. Assessment: 14:30 General: Appears uncomfortable, Behavior is calm, cooperative, Denies fever. Pain: rb1 Complains of pain in suprapubic area Pain currently is 5 out of 10 on a pain scale. Neuro: Level of Consciousness is awake, alert, obeys commands, Oriented to person, place, time, situation. Cardiovascular: Capillary refill < 3 seconds is brisk in bilateral fingers. Respiratory: Airway is patent Respiratory effort is even, unlabored, Respiratory pattern is regular, symmetrical. GI: No signs and/or symptoms were reported involving the gastrointestinal system. : Reports inability to void, since this morning. Derm: Skin is pink, warm \\T\\ dry. Musculoskeletal: Range of motion: intact in all extremities. 15:28 Reassessment: Patient appears in no apparent distress at this time. No changes from rb1 previously documented assessment. Patient states feeling better. 16:00 Reassessment: Patient appears in no apparent distress at this time. Patient and/or rb1 family updated on plan of care and expected duration. Pain level reassessed. Patient is alert, oriented x 3, equal unlabored respirations, skin warm/dry/pink. Applied Delvalle leg bag. Patient denies pain at this time. Vital Signs: 14:18 BP 167 / 109; Pulse 110; Resp 18 S; Temp 98.5(O); Pulse Ox 100% on R/A; Weight 99.79 kg aa5 (R); Height 6 ft. 1 in. (185.42 cm) (R); Pain 5/10; 15:18 BP 143 / 90; Pulse 95; Resp 17; Temp 98.1(O); Pulse Ox 99% on R/A; Pain 0/10; rb1 16:00 BP 143 / 90; Pulse 95; Resp 16; Temp 97.9(O); Pulse Ox 99% ; Pain 0/10; rb1 14:18 Body Mass Index 29.03 (99.79 kg, 185.42 cm) aa5 ED Course: 14:12 Patient arrived in ED. as 14:16 Arm band placed on. aa5 14:18 Triage completed. aa5 14:22 Tay Garcia MD is Attending Physician. rn 14:30 Patient has correct armband on for positive identification. Placed in gown. Bed in low rb1 position. Call light in reach. Side rails up X 1. Pulse ox on. NIBP on. Warm blanket given. 14:47 Peggy Beard, RN is Primary Nurse. rb1 14:58 Bladder scan completed. 521. Delvalle cath inserted, using sterile technique, 16 Fr., by aj me, balloon inflated, to gravity drainage, clamped. 16:03 No provider procedures requiring assistance completed. Patient did not have IV access rb1 during this emergency room visit. Administered Medications: No medications were administered Output: 14:58 Urine: 500ml (Delvalle); Total: 500ml. rb1 Outcome: 15:32 Discharge ordered by . rn 16:03 Patient left the ED. rb1 16:03 Discharged to home ambulatory. rb1 16:03 Condition: stable 16:03 Discharge instructions given to patient, Instructed on discharge instructions, follow up and referral plans. Demonstrated understanding of instructions, follow-up care, Prescriptions given X none Signatures: Reina Slaughter RN RN Rachana Cole Roman, MD MD rn Calderon, Audri, RN RN aa5 Peggy Beard RN RN rb1 Corrections: (The following items were deleted from the chart) 14:19 14:16 Presenting complaint: Patient states: unable to void since this morning. Pt aa5 states "I had bladder surgery for cancer on November 27" aa5 17:22 16:00 Reassessment: Patient appears in no apparent distress at this time. Patient rb1 and/or family updated on plan of care and expected duration. Pain level reassessed. Patient is alert, oriented x 3, equal unlabored respirations, skin warm/dry/pink. Patient denies pain at this time. rb1
--- NOTE | 2018-12-31 15:32 | EDPHYS ---
Physician Documentation [facility] Name: Judit Espinosa Age: 53 yrs Sex: Male : 1965 Arrival Date: 12/31/2018 Time: 14:12 Bed 14 Private MD: ED Physician Tay Garcia HPI: 12/31 14:38 This 53 yrs old Male presents to ER via Ambulatory with complaints of Urinary rn Retention. 14:38 The patient presents with urinary symptoms, retention, unable to void. Onset: The rn symptoms/episode began/occurred this morning. Modifying factors: The symptoms are alleviated by nothing, the symptoms are aggravated by nothing. Severity of symptoms: At their worst the symptoms were moderate, in the emergency department the symptoms are unchanged. The patient has experienced similar episodes in the past. Reports just had catheter removed yesterday after bladder cancer surgery. Was able to urinate yesterday and this AM, that was last void, + lower abd fullness and unable to urinate.. Historical: - Allergies: 14:18 No Known Allergies; aa5 - PMHx: 14:18 bladder/prostate CA; aa5 - PSHx: 14:18 Prostatectomy; bladder sx for CA 11/27/18; aa5 - Immunization history:: Adult Immunizations up to date. - Ebola Screening: : No symptoms or risks identified at this time. - Family history:: not pertinent. - Social history:: Smoking status: Patient/guardian denies using tobacco. - Hospitalizations: : No recent hospitalization is reported. ROS: 14:38 Constitutional: Negative for fever, chills, and weight loss, Abdomen/GI: + lower abd rn pain Back: Negative for injury and pain, : + urinary retention Exam: 14:38 Constitutional: This is a well developed, well nourished patient who is awake, alert, rn appears uncomfortable and pacing Neuro: Awake and alert, GCS 15, oriented to person, place, time, and situation. Cranial nerves II-XII grossly intact. Motor strength 5/5 in all extremities. Sensory grossly intact. Cerebellar exam normal. Normal gait. Vital Signs: 14:18 BP 167 / 109; Pulse 110; Resp 18 S; Temp 98.5(O); Pulse Ox 100% on R/A; Weight 99.79 kg aa5 (R); Height 6 ft. 1 in. (185.42 cm) (R); Pain 5/10; 15:18 BP 143 / 90; Pulse 95; Resp 17; Temp 98.1(O); Pulse Ox 99% on R/A; Pain 0/10; rb1 16:00 BP 143 / 90; Pulse 95; Resp 16; Temp 97.9(O); Pulse Ox 99% ; Pain 0/10; rb1 14:18 Body Mass Index 29.03 (99.79 kg, 185.42 cm) aa5 MDM: 14:22 Patient medically screened. rn 15:30 Differential diagnosis: urinary retention. Data reviewed: vital signs, nurses notes, rn and as a result, I will discharge patient. Counseling: I had a detailed discussion with the patient and/or guardian regarding: the historical points, exam findings, and any diagnostic results supporting the discharge/admit diagnosis, the need for outpatient follow up, to return to the emergency department if symptoms worsen or persist or if there are any questions or concerns that arise at home. Special discussion: I discussed with the patient/guardian in detail that at this point there is no indication for admission to the hospital. It is understood, however, that if the symptoms persist or worsen the patient needs to return immediately for re-evaluation. Based on the history and exam findings, there is no indication for further emergent testing or inpatient evaluation. I discussed with the patient/guardian the need to see the urologist for further evaluation of the symptoms. ED course: Patient improved, has had 700cc urine out, will dc home with leg bag and urology f/u.. 12/31 14:23 Order name: Bladder Scanner; Complete Time: 14:58 rn 12/31 14:24 Order name: [place]; Complete Time: 14:58 rn 12/31 16:02 Order name: [place]le Leg Bag; Complete Time: 16:03 rb1 Administered Medications: No medications were administered Disposition: 12/31/18 15:32 Discharged to Home. Impression: Retention of urine, unspecified. - Condition is Stable. - Discharge Instructions: [place] Catheter Care, Adult, Acute Urinary Retention, Male. - Medication Reconciliation Form, Thank You Letter, Antibiotic Education, Prescription Opioid Use form. - Follow up: Private Physician; When: As needed; Reason: Recheck today's complaints, Re-evaluation by your physician. - Problem is new. - Symptoms have improved. Signatures: Tay Garcia MD MD rn Calderon, Audri RN RN aa5 Peggy Beard, RN RN rb1 Corrections: (The following items were deleted from the chart) 16:03 15:32 12/31/2018 15:32 Discharged to Home. Impression: Retention of urine, unspecified. rb1 Condition is Stable. Forms are Medication Reconciliation Form, Thank You Letter, Antibiotic Education, Prescription Opioid Use. Follow up: Private Physician; When: As needed; Reason: Recheck today's complaints, Re-evaluation by your physician. Problem is new. Symptoms have improved. rn
== END 2018-12-31 16:03 | disposition home or self-care (01) ==
LOC: ER 14:11
DX: R33.9 Retention of urine, unspecified (principal); Z85.46 Personal history of malignant neoplasm of prostate
CPT/HCPCS: 51702; 99284